=== PATIENT | female | born 1965 | race Caucasian/White ===

== ENCOUNTER 2020-03-22 16:27 | Outpatient (REF) | payer OTHER, SELFPAY ==
--- NOTE | 2020-03-22 16:30 | MM_ITS ---
EXAMINATION: MM SCREENING DIGITAL BREAST TOMOSYNTHESIS, BILATERAL CLINICAL INFORMATION: Screening. Asymptomatic. The lifetime risk of breast cancer based on the Tyrer-Cuzick Model is 14%. COMPARISON: Mammography: 12/07/2017, 09/18/2016, 08/16/2015 TECHNIQUE: Digital breast tomosynthesis is performed in both the craniocaudal and mediolateral oblique views along with computer-aided detection (CAD). Synthesized 2D images are generated from the tomosynthesis. FINDINGS: There are scattered areas of fibroglandular density (ACR BI-RADS breast composition Category b). Breast tissue composition borders on heterogeneously dense. There are scattered bilateral asymmetries which are stable. There is no developing density or interval mass or architectural abnormality or abnormal calcifications. No significant changes from prior exams. MM/MM tomosynthesis screening BI IMPRESSION: No significant changes from prior studies. ASSESSMENT: BI-RADS 2: Benign RECOMMENDATION: Routine annual mammography screening. This patient's information was entered into a reminder system with a target due date for their next mammogram.
== END 2020-03-22 16:28 | disposition home or self-care (01) ==
LOC: HO.MAMMO 16:27
PROVIDERS: PCP Internal Medicine; Visit Provider Internal Medicine
DX: Z12.31 Encounter for screening mammogram for malignant neoplasm of breast (principal)
CPT/HCPCS: 77063; 77067

== ENCOUNTER 2021-08-31 10:26 | Outpatient (REF) | payer OTHER, SELFPAY ==
[2021-08-31 11:10] LABS: MANUAL DIFF FLAG NO
[2021-08-31 11:18] LABS: Basophils Percent Auto 0.5 % (0-2); Eosinophils Absolute Auto 0.2 X10*3/uL (0.0-0.4); Eosinophils Percent Auto 2.4 % (0-4); Hematocrit 39.2 % (37.0-47.0); Hemoglobin 13.3 g/dl (12.0-16.0); Imm Gran Abs Auto 0.01 X10*3/uL (0.00-0.03); Imm Gran Pct Auto 0.1 % (0.0-0.4); Lymphocytes Absolute Auto 3.5 X10*3/uL (1.2-4.9); Lymphocytes Percent Auto 39.4 % (20-40); Mean Corpuscular HGB Conc 33.9 g/dl (31.0-35.0); Mean Corpuscular Hemoglobin 31.9 pg (27.0-33.0); Mean Platelet Volume 8.9 fL (9.4-12.3); Monocytes Absolute Auto 0.8 X10*3/uL (0.1-1.2); Monocytes Percent Auto 9.5 % (2-11); Neutrophils Absolute Auto 4.3 x10*3/uL (2.0-8.3); Neutrophils Percent Auto 48.1 % (45-73); Platelet Count 371 X10*3/uL (160-400); Red Blood Count 4.17 X10*6/uL (4.20-5.50); Red Cell Distribution Width 15.2 % (11.0-16.0); White Blood Count 8.9 X10*3/uL (4.8-10.8)
[2021-08-31 11:38] LABS: Alanine Aminotransferase 12 U/L (0-31); Albumin Level 4.3 g/dL (3.5-5.0); Alkaline Phosphatase 68 U/L (39-117); Anion Gap 12 (12-20); Aspartate Amino Transferase 16 U/L (5-31); Bilirubin Total 0.3 mg/dL (0.0-1.0); Blood Urea Nitrogen 20 mg/dL (9-16); Calcium 8.8 mg/dL (8.4-10.2); Carbon Dioxide 25 mmol/L (22-29); Chloride 108 mmol/L (96-108); Cholesterol 259 mg/dL; Estimated Glomerular Filt Rate > 60; Glucose Fasting 98 mg/dL (60-99); HDL Cholesterol 46 mg/dL; LDL Cholesterol Calculated 189 mg/dl; Potassium 4.5 mmol/L (3.3-5.1); Sodium 140 mmol/L (135-145); Total Protein 6.9 g/dL (6.5-8.0); Triglycerides 123 mg/dL
[2021-08-31 11:46] LABS: TSH reflex Free T4 1.63 uIU/mL (0.32-4.0)
[2021-09-02 10:52] LABS: Vitamin B12 187 pg/mL (200-900)
[2021-09-04 15:12] LABS: Vitamin D 25-OH, D2 <4 ng/mL; Vitamin D 25-OH, D3 24 ng/mL; Vitamin D 25-OH, Total 24 ng/mL (30-100)
== END 2021-08-31 10:27 | disposition home or self-care (01) ==
LOC: HO.HMGCLDS 10:26
PROVIDERS: PCP Internal Medicine; Visit Provider Internal Medicine
DX: Z00.01 Encounter for general adult medical examination with abnormal findings (principal); E78.9 Disorder of lipoprotein metabolism, unspecified; R73.01 Impaired fasting glucose; F17.200 Nicotine dependence, unspecified, uncomplicated
CPT/HCPCS: 36415; 80053; 80061; 82306; 82607; 84443; 85025

== ENCOUNTER 2021-11-16 09:54 | Outpatient (REF) | payer OTHER, SELFPAY ==
--- NOTE | ~2021-11-16 | MM_ITS ---
EXAMINATION: MM SCREENING DIGITAL BREAST TOMOSYNTHESIS, BILATERAL CLINICAL INFORMATION: Screening. Asymptomatic. The lifetime risk of breast cancer based on the Tyrer-Cuzick Model is 11%. COMPARISON: Mammography: 03/22/2020, 12/07/2017, 09/18/2016 TECHNIQUE: Digital breast tomosynthesis is performed in both the craniocaudal and mediolateral oblique views along with computer-aided detection (CAD). Synthesized 2D images are generated from the tomosynthesis. FINDINGS: There are scattered areas of fibroglandular density (ACR BI-RADS breast composition Category b). There are no significant masses, abnormal calcifications, developing density, architectural abnormality. There are scattered benign round and rim and vascular calcifications. No significant changes. The axilla and skin contours are unremarkable. MM/MM tomosynthesis screening BI IMPRESSION: No mammographic evidence of malignancy. ASSESSMENT: BI-RADS 2: Benign RECOMMENDATION: Routine annual mammography screening. This patient's information was entered into a reminder system with a target due date for their next mammogram.
== END 2021-11-16 09:55 | disposition home or self-care (01) ==
LOC: HO.MAMMO 09:54
PROVIDERS: PCP Internal Medicine; Visit Provider Internal Medicine
DX: Z12.31 Encounter for screening mammogram for malignant neoplasm of breast (principal)
CPT/HCPCS: 77063; 77067

== ENCOUNTER 2022-01-03 14:36 | Outpatient (REF) | payer OTHER, SELFPAY ==
--- NOTE | ~2022-01-03 | CT_ITS ---
EXAMINATION: CT CHEST SCREENING CLINICAL INFORMATION: Current smoker. 36 pack year history. COMPARISON: None. TECHNIQUE: Multidetector volumetric CT imaging of the chest is performed without contrast using low dose technique. Additional 2D coronal and sagittal reformatted images and axial 3D maximum intensity projection (MIP) images are generated on the CT workstation. This CT examination was performed using dose optimization techniques as appropriate, variously including the following: *Automated exposure control *Adjustment of mA and/or kV according to patient size (this includes techniques or standardized protocols for targeted exams where dose is matched to indication/reason for exam; i.e. extremities or head) *Use of iterative reconstruction technique DLP: 40 mGy-cm FINDINGS: LUNGS: There is evidence of emphysema. There is biapical pleural parenchymal scarring. No endobronchial or endotracheal lesion. MEDIASTINUM: The mediastinum is normal. CORONARY ARTERY CALCIFICATION: None visualized on this study. PLEURA: There is no pleural effusion. No pleural mass or thickening. AXILLA: No lymphadenopathy. UPPER ABDOMEN: Unremarkable OSSEOUS STRUCTURES: Degenerative changes of the spine. Question mild compression fracture versus Schmorl's node of the T11 vertebral body. CT/CT lung screening IMPRESSION: Emphysema and biapical pleural and parenchymal scarring. ASSESSMENT: Lung-RADS category 2: Benign RECOMMENDATION: Annual low-dose chest CT follow-up recommended.
== END 2022-01-03 14:37 | disposition home or self-care (01) ==
LOC: HO.CT 14:36
PROVIDERS: Visit Provider Physician Assistant Medical
DX: Z12.2 Encounter for screening for malignant neoplasm of respiratory organs (principal); F17.210 Nicotine dependence, cigarettes, uncomplicated
CPT/HCPCS: 71271; G0296

== ENCOUNTER 2022-02-01 09:09 | Outpatient (REF) | payer OTHER, SELFPAY ==
[2022-02-01 11:51] LABS: Alanine Aminotransferase 20 U/L (0-31); Albumin Level 4.6 g/dL (3.5-5.0); Alkaline Phosphatase 55 U/L (39-117); Anion Gap 14 (12-20); Aspartate Amino Transferase 23 U/L (5-31); Bilirubin Total 0.2 mg/dL (0.0-1.0); Blood Urea Nitrogen 15 mg/dL (9-16); Calcium 9.4 mg/dL (8.4-10.2); Carbon Dioxide 26 mmol/L (22-29); Chloride 105 mmol/L (96-108); Cholesterol 158 mg/dL; Estimated Glomerular Filt Rate > 60; Glucose Fasting 102 mg/dL (60-99); HDL Cholesterol 50 mg/dL; LDL Cholesterol Calculated 89 mg/dl; Potassium 4.6 mmol/L (3.3-5.1); Sodium 140 mmol/L (135-145); Total Protein 7.1 g/dL (6.5-8.0); Triglycerides 99 mg/dL
[2022-02-01 12:06] LABS: Vitamin B12 789 pg/mL (200-900)
[2022-02-06 12:23] LABS: Vitamin D 25-OH, D2 <4 ng/mL; Vitamin D 25-OH, D3 36 ng/mL; Vitamin D 25-OH, Total 36 ng/mL (30-100)
== END 2022-02-01 09:10 | disposition home or self-care (01) ==
LOC: HO.HMGCLDS 09:09
PROVIDERS: PCP Internal Medicine; Visit Provider Internal Medicine
DX: R73.01 Impaired fasting glucose (principal); E78.9 Disorder of lipoprotein metabolism, unspecified; E53.8 Deficiency of other specified B group vitamins; E55.9 Vitamin D deficiency, unspecified
CPT/HCPCS: 36415; 80053; 80061; 82306; 82607

== ENCOUNTER 2022-08-04 09:32 | Outpatient (REF) | payer OTHER, SELFPAY ==
[2022-08-04 11:18] LABS: MANUAL DIFF FLAG NO
[2022-08-04 11:37] LABS: Basophils Percent Auto 0.5 % (0-2); Eosinophils Absolute Auto 0.2 X10*3/uL (0.0-0.4); Eosinophils Percent Auto 2.5 % (0-4); Hematocrit 40.5 % (37.0-47.0); Hemoglobin 13.6 g/dl (12.0-16.0); Imm Gran Abs Auto 0.02 X10*3/uL (0.00-0.03); Imm Gran Pct Auto 0.2 % (0.0-0.4); Lymphocytes Absolute Auto 3.2 X10*3/uL (1.2-4.9); Lymphocytes Percent Auto 36.6 % (20-40); Mean Corpuscular HGB Conc 33.6 g/dl (31.0-35.0); Mean Corpuscular Hemoglobin 32.6 pg (27.0-33.0); Mean Corpuscular Volume 97.1 fL (80.0-98.0); Mean Platelet Volume 9.4 fL (9.4-12.3); Monocytes Absolute Auto 0.9 X10*3/uL (0.1-1.2); Monocytes Percent Auto 10.3 % (2-11); Neutrophils Absolute Auto 4.3 x10*3/uL (2.0-8.3); Neutrophils Percent Auto 49.9 % (45-73); Platelet Count 316 X10*3/uL (160-400); Red Blood Count 4.17 X10*6/uL (4.20-5.50); Red Cell Distribution Width 14.6 % (11.0-16.0); White Blood Count 8.7 X10*3/uL (4.8-10.8)
[2022-08-04 11:50] LABS: Estimated Average Glucose 108 mg/dL; Hemoglobin A1c % 5.4 %
[2022-08-04 11:59] LABS: Alanine Aminotransferase 19 U/L (0-31); Albumin Level 4.3 g/dL (3.5-5.0); Alkaline Phosphatase 53 U/L (39-117); Anion Gap 11 (12-20); Aspartate Amino Transferase 24 U/L (5-31); Bilirubin Total 0.4 mg/dL (0.0-1.0); Blood Urea Nitrogen 15 mg/dL (9-16); Calcium 9.4 mg/dL (8.4-10.2); Carbon Dioxide 28 mmol/L (22-29); Chloride 107 mmol/L (96-108); Cholesterol 162 mg/dL; Estimated Glomerular Filt Rate > 60; Glucose Fasting 118 mg/dL (60-99); HDL Cholesterol 48 mg/dL; LDL Cholesterol Calculated 92 mg/dl; Sodium 141 mmol/L (135-145); Total Protein 6.8 g/dL (6.5-8.0); Triglycerides 111 mg/dL
[2022-08-04 12:25] LABS: Vitamin B12 791 pg/mL (200-900)
[2022-08-10 15:44] LABS: Vitamin D 25-OH, D2 <4 ng/mL; Vitamin D 25-OH, D3 35 ng/mL; Vitamin D 25-OH, Total 35 ng/mL (30-100)
== END 2022-08-04 09:33 | disposition home or self-care (01) ==
LOC: HO.HMGCLDS 09:32
PROVIDERS: PCP Internal Medicine; Visit Provider Internal Medicine
DX: E53.8 Deficiency of other specified B group vitamins (principal); E55.9 Vitamin D deficiency, unspecified; E78.9 Disorder of lipoprotein metabolism, unspecified; F17.200 Nicotine dependence, unspecified, uncomplicated; R73.01 Impaired fasting glucose
CPT/HCPCS: 36415; 80053; 80061; 82306; 82607; 83036; 85025

== ENCOUNTER → 2022-11-22 10:30 | Outpatient (BNV) | payer OTHER, SELFPAY | PROVIDERS: PCP Internal Medicine; Visit Provider Radiology Diagnostic Radiology | DX: Z12.31 Encounter for screening mammogram for malignant neoplasm of breast (principal) | CPT/HCPCS: 77063; 77067 ==

== ENCOUNTER 2022-11-22 10:39 | Outpatient (REF) | payer OTHER, SELFPAY ==
--- NOTE | ~2022-11-22 | MM_ITS ---
EXAMINATION: MM SCREENING DIGITAL BREAST TOMOSYNTHESIS, BILATERAL CLINICAL INFORMATION: Screening. Asymptomatic. COMPARISON: Mammography: This study is compared with prior exams dating back to 2018. TECHNIQUE: Digital breast tomosynthesis is performed in both the craniocaudal and mediolateral oblique views along with computer-aided detection (CAD). Synthesized 2D images are generated from the tomosynthesis. FINDINGS: The breasts are heterogeneously dense, which may obscure small masses (ACR BI-RADS breast composition Category c). There are 2-3 areas of fine calcification in the upper outer quadrant of the right breast. The most medial calcifications lie at the level of the posterior nipple line. Additional mammographic imaging with magnification of the upper outer quadrant of the right breast is advised. In the left breast, there no are no significant masses, abnormal calcifications, or other abnormalities. MM/MM tomosynthesis screening BI IMPRESSION: Calcifications in the upper outer quadrant of the right breast warrant additional mammographic imaging with magnification. No mammographic signs of malignancy left breast. ASSESSMENT: BI-RADS BI-RADS 0 - Incomplete: Needs additional Imaging. RECOMMENDATION: 1. Additional views of the left breast. .2. Targeted ultrasound if warranted after review of the additional views. 3. Radiology department staff will contact the patient for additional imaging. Additional Imaging required This examination should not preclude the clinical evaluation of a suspicious palpable abnormality. This patient's information was entered into a reminder system with a target due date for their next mammogram.
== END 2022-11-22 10:40 | disposition home or self-care (01) ==
LOC: HO.MAMMO 10:39
PROVIDERS: PCP Internal Medicine; Visit Provider Internal Medicine
DX: Z12.31 Encounter for screening mammogram for malignant neoplasm of breast (principal)
CPT/HCPCS: 77063; 77067

== ENCOUNTER 2022-11-26 08:18 | Outpatient (REF) | payer OTHER, SELFPAY ==
--- NOTE | ~2022-11-26 | MM_ITS ---
EXAMINATION: MM DIAGNOSTIC DIGITAL MAMMOGRAPHY, RIGHT CLINICAL INFORMATION: Evaluate right breast calcifications seen on screening mammography 11/22/2022. COMPARISON: Mammography: 11/22/2022, 11/16/2021, 03/22/2020, and dating back to 2016. TECHNIQUE: Digital mammography is performed in the following views: Right 3-D spot magnification CC and ML views x2. FINDINGS: The breasts are heterogeneously dense, which may obscure small masses (ACR BI-RADS breast composition Category c). There are at least 2 groups of significant calcifications in the anterior upper outer right breast, which on magnification views demonstrate minimal pleomorphism, punctate forms, and oval poorly defined forms. No linear, branching, or suspicious patterns. No evidence of layering on the ML views. In comparison with 08/16/2015 right mammography, these appear completely unchanged and are almost certainly benign having been stable from 2016. We will follow up in one year with standard diagnostic views and standard tomographic views to be cautious. MM/MM added views RT IMPRESSION: Calcifications which are almost certainly benign seen from 2016 within the anterior right breast upper outer quadrant. To be cautious, 1 year follow-up diagnostic right mammography recommended to include standard magnification views, when the patient is due for bilateral screening. Findings and recommendations were discussed with the patient in detail, who is in agreement with the overall plan. ASSESSMENT: BI-RADS BI-RADS 3 - Probably benign finding(s) - 12 month follow-up suggested RECOMMENDATION: 12 month diagnostic follow up This patient's information was entered into a reminder system with a target due date for their next mammogram.
== END 2022-11-26 08:19 | disposition home or self-care (01) ==
LOC: HO.MAMMO 08:18
PROVIDERS: Visit Provider Internal Medicine
DX: R92.1 Mammographic calcification found on diagnostic imaging of breast (principal)
CPT/HCPCS: 77065

== ENCOUNTER → 2022-11-26 08:30 | Outpatient (BNV) | payer OTHER, SELFPAY | PROVIDERS: Visit Provider Radiology Diagnostic Radiology | DX: R92.331 Mammographic heterogeneous density, right breast (principal); R92.1 Mammographic calcification found on diagnostic imaging of breast | CPT/HCPCS: 77065 ==

== ENCOUNTER 2023-01-24 09:39 | Outpatient (REF) | payer OTHER, SELFPAY ==
[2023-01-24 11:36] LABS: Alanine Aminotransferase 14 U/L (0-31); Albumin Level 4.4 g/dL (3.5-5.0); Alkaline Phosphatase 51 U/L (39-117); Anion Gap 13 (12-20); Aspartate Amino Transferase 21 U/L (5-31); Bilirubin Total 0.3 mg/dL (0.0-1.0); Blood Urea Nitrogen 13 mg/dL (9-16); Calcium 9.5 mg/dL (8.4-10.2); Carbon Dioxide 27 mmol/L (22-29); Chloride 107 mmol/L (96-108); Cholesterol 146 mg/dL (<200); Estimated Glomerular Filt Rate > 60; Glucose Fasting 104 mg/dL (60-99); HDL Cholesterol 47 mg/dL (>40); LDL Cholesterol Calculated 77 mg/dL (<100); Potassium 4.7 mmol/L (3.3-5.1); Sodium 142 mmol/L (135-145); Total Protein 7.3 g/dL (6.5-8.0); Triglycerides 112 mg/dL (<150)
[2023-01-24 11:58] LABS: Vitamin B12 423 pg/mL (200-900)
[2023-01-28 16:03] LABS: Vitamin D 25-OH, D2 <4 ng/mL; Vitamin D 25-OH, D3 23 ng/mL; Vitamin D 25-OH, Total 23 ng/mL (30-100)
== END 2023-01-24 09:40 | disposition home or self-care (01) ==
LOC: HO.HMGCLDS 09:39
PROVIDERS: PCP Internal Medicine; Visit Provider Internal Medicine
DX: E78.9 Disorder of lipoprotein metabolism, unspecified (principal); E53.8 Deficiency of other specified B group vitamins; R73.01 Impaired fasting glucose; E55.9 Vitamin D deficiency, unspecified
CPT/HCPCS: 36415; 80053; 80061; 82306; 82607

== ENCOUNTER 2023-01-27 10:09 | Outpatient (AMB) | payer OTHER, SELFPAY ==
[2023-01-27 10:15] VITALS: BP 132/78; PULSE 90; O2SAT 96; BMI 26.3
--- NOTE | 2023-01-27 10:15 | MHC.PC.OV ---
Vital Signs 01/27/23 10:15 Height 5 ft 2 in Weight 144 lb BMI 26.3 BP 132/78 Blood Pressure Location Lt brachial Position Sitting Pulse 90 Pulse Source Pulse Oximeter Pulse Oximetry (%) 96 Oxygen Delivery Method Room Air Intake Visit Reasons: 6 month follow up Allergies statin Allergy (Unknown, Uncoded 02/07/22 08:15) joint pain Statins Adverse Reaction (Unknown, Uncoded 02/07/22 08:15) Joint pain Medication List - Last Reconciled 01/27/23 by Eric Mcmahan MD buspirone 5 mg PO .q am PRN 90 days multivitamin 1 tab PO DAILY rosuvastatin 20 mg PO DAILY 90 days Tobacco use date assessed: 01/27/23 Dental Screening Dental Screen Date: 01/27/23 Did you have a dental visit in the last 12 months?: Yes Did you have a dental problem in the last 6 months where you did not have access to dental care?: No Was dental information given to patient?: No HPI 6 month follow up HPI Details Patient is 57-year-old female came in today for her six-month follow-up appointment Patient has going through difficult time for domestic reasons, having difficulty with She is exploring the possibility of couple counseling. She is also going through dental treatment and is feeling very anxious because some the teeth need to be removed She is asking if she can go up on buspirone that she is taking for anxiety currently patient is on 5 mg I am increasing the dose to 10 mg up to 3 times a day. Lipid disorder: she is on rosuvastatin 20 mg Pre diabetes: Continue weight management and diet-controlled Vitamin-D level is normal now. She may continue the supplement Continue to smoke , patient has tried lozenges but she did not like the taste. I have sent Nicoderm patches again. She did had a screening CT scan done which was within normal limit. Labs done recently reviewed Patient is coming every 6 months for follow-up, but I would like to see her back in 3 months because of anxiety [facility] Medical History History of basal cell cancer Vitamin D insufficiency (~2021) History of colon polyps (~2018) Nicotine dependence, cigarettes, uncomplicated B12 deficiency (~2021) Lipid disorder Surgical History History of hysterectomy History of cervical biopsy History of colonoscopy Family History Brother Substance use disorder Social History Housing: House Patient Tobacco Use Status: Current everyday Tobacco user Tobacco use type: Cigarette Cigarettes Per Day: 15 Years Smoked: (onset 18yo, 1ppd x 38yrs, now 3/4ppd - 35pyh) e-Cigarette/Vaping Use: Never Used service: No Current occupational status: employed Cognitive needs: No Hearing needs: No Vision needs: Yes Questionnaire PHQ-9 Over the last 2 weeks, how often have you been bothered by any of the following problems? 1. Little interest or pleasure in doing things: not at all 2. Feeling down, depressed, or hopeless: not at all 3. Trouble falling or staying asleep, or sleeping too much: several days 4. Feeling tired or having little energy: several days 5. Poor appetite or overeating: not at all 6. Feeling bad about yourself - or that you are a failure or have let yourself or your family down: not at all 7. Trouble concentrating on things, such as reading the newspaper or watching television: not at all 8. Moving or speaking so slowly that other people could have noticed. Or the opposite - being so fidgety or restless that you have been moving around a lot more than usual: not at all 9. Thoughts that you would be better off or of hurting yourself in some way: not at all Total score: 2 Depression Screening Interpretation: Negative Depression Screening Done: Yes 26189 - PHQ-9 Billing: Yes Source: Developed by Drs. Mao Florentino, Cris Simon, Ned Jaramillo and colleagues, with an educational hayde from [employer]. Thrive Questionnaire Date Thrive assessed: 01/27/23 I am a: Patient What is your living situation today?: I have a steady place to live Within the past 12 months, did the food you bought not last and you didn't have the money to get more?: Never true Within the past 12 months, did you worry whether your food would run out before you got money to buy more?: Never true Do you have trouble paying for medicines?: No Do you have trouble getting transportation to medical appointments?: No Do you have trouble paying your heating and electricity bill?: No Do you have trouble taking care of your child, family member or friend?: No Do you have trouble with day-to-day activities such as bathing, preparing meals, shopping, managing finances, etc.?: No Are you currently unemployed and looking for a job?: No Are you interested in more education?: No Please select the resources that you would like help with: None Currently or been in a relationship where the following occur: no concerns reported AUDIT C Alcohol Use Questionnaire (AUDIT-C) 1. How often do you have a drink containing alcohol?: 2-3 times a week 2. How many drinks containing alcohol do you have on a typical day when you are drinking?: 1 or 2 3. How often do you have six or more drinks on one occasion?: Never Total Score: 3 Score Reviewed/Action Taken: Yes DEEPALI-7 AMB Questionnaire DEEPALI-7 Date DEEPALI - 7 assessed: 01/27/23 Feeling nervous, anxious, or on edge: 1 = Several days Not being able to stop or control worryin = Several days Worrying too much about different things: 1 = Several days Trouble relaxin = Several days Being so restless that it is hard to sit still: 1 = Several days Becoming easily annoyed or irritable: 1 = Several days Feeling afraid as if something awful might happen: 1 = Several days Total DEEPALI-7 score (0-4 normal; 5-9 mild; 10-14 moderate; 15-21 severe): 7 Source: Developed by Drs. Mao Florentino, Cris Simon, Ned Jaramillo and colleagues, with an educational hayde from [employer]. DEEPALI-7 Assessment Billing DEEPALI-7 Assessment Tool: DEEPALI-7 Assessment 72713 Review of Systems Const Denies chills and Denies fever(s) ENT Denies epistaxis and Denies nasal discharge Card Denies chest pain Resp Denies chest congestion, Denies cough and Denies hemoptysis GI Denies diarrhea and Denies nausea Skin/Breast Denies rash Neuro Reports no additional complaints Psych Reports no additional complaints Endo Reports no additional complaints Physical exam (Primary Care) Vital Signs: Last Vital Signs Pulse 90 01/27/23 10:15 BP 132/78 01/27/23 10:15 Pulse Ox 96 01/27/23 10:15 Oxygen Delivery Method Room Air 01/27/23 10:15 BMI result Body Mass Index 26.3 Tobacco/Smoking Status: Tobacco use Status Tobacco use date assessed 01/27/23 01/27/23 10:18 Patient Tobacco Use Status Current everyday Tobacco 01/27/23 10:18 Tobacco use type Cigarette 01/27/23 10:18 e-Cigarette/Vaping Use Never Used 01/27/23 10:18 Are you ready to quit: Yes Tobacco cessation counseling provided: Yes Items discussed: Nicotine replacement CPT code: 76335 - 4-10 Minutes PHQ-9: PHQ-9 Score PHQ-9: Total score 2 01/27/23 10:34 Depression Screening Interpretation: Negative Thrive Assessment: Date of Thrive Assessment Date Thrive assessed 01/27/23 01/27/23 10:30 Currently or been in a relationship where the following occur: no concerns reported Const General: cooperative, comfortable and no acute distress Orientation/consciousness: patient oriented x3 HENMT Head: Yes normocephalic Eyes General: appearance normal, both eyes and all related structures Neck Neck: Yes supple Resp Effort & Inspection: normal respiratory effort, no cough and no stridor Cardio Rhythm: regular rhythm Heart sounds: S1 normal heart sound present and S2 normal heart sound present Skin General skin exam: turgor normal Neuro General: patient oriented x3, tone normal and moves all extremities Extrem Right lower extremity: no edema Left lower extremity: no edema Office Procedures Flu Questionnaire Does the patient have a severe egg allergy?: No Does the patient have severe life threatening allergies?: No Does the patient have a fever or illness today?: No Has the patient ever had Guillain-Billings Syndrome?: No Has the patient ever had any past reaction to a flu shot?: No Immunizations flu vacc [id number] 6mos up(PF) 60 mcg(15 mcgx4)/0.5 mL IM syringe Performing Provider: Eric Mcmahan MD [place] [facility] [place] [facility] Administered by: Rhona Garrido CMA on 01/27/23 10:39 Dose Route Admin Location Dispensed Lot Number Expiration Date NDC [employer] 0.5 mL IM Left Deltoid 0.5 mL [id number] 08/23/23 87399-267-03 [employer] VIS Given Date VIS Provided VIS Publication Date 01/27/23 Single Vaccine 20 Eligibility Eligibility Date Funding Source Not [facility] Eligible 01/27/23 Private Assessment and Plan Assessment & Plan (1) Lipid disorder: Code(s): E78.9 - Disorder of lipoprotein metabolism, unspecified (2) B12 deficiency: Onset Date: ~2021 Code(s): E53.8 - Deficiency of other specified B group vitamins (3) Vitamin D insufficiency: Onset Date: ~2021 Code(s): E55.9 - Vitamin D deficiency, unspecified (4) Tobacco dependence: Code(s): F17.200 - Nicotine dependence, unspecified, uncomplicated (5) Impaired fasting blood sugar: Code(s): R73.01 - Impaired fasting glucose (6) Gum disease: Code(s): K06.9 - Disorder of gingiva and edentulous alveolar ridge, unspecified (7) Anxiety, generalized: Code(s): F41.1 - Generalized anxiety disorder Plan Patient is 57-year-old female came in today for her six-month follow-up appointment Patient has going through difficult time for domestic reasons, having difficulty with She is exploring the possibility of couple counseling. She is also going through dental treatment and is feeling very anxious because some the teeth need to be removed She is asking if she can go up on buspirone that she is taking for anxiety currently patient is on 5 mg I am increasing the dose to 10 mg up to 3 times a day. Lipid disorder: she is on rosuvastatin 20 mg Pre diabetes: Continue weight management and diet-controlled Vitamin-D level is normal now. She may continue the supplement Continue to smoke , patient has tried lozenges but she did not like the taste. I have sent Nicoderm patches again. She did had a screening CT scan done which was within normal limit. Labs done recently reviewed Patient is coming every 6 months for follow-up, but I would like to see her back in 3 months because of anxiety Orders: Orders Influenza [id number] Immunization Today Z23 - Encounter for immunization Medications: New nicotine (Nicoderm CQ) 1 patch transdermal DAILY 28 ea 1RF Changed From buspirone 5 mg PO .q am 90 days PRN 90 tabs 1RF anxiety To buspirone 10 mg PO TID PRN 180 tabs 1RF anxiety 90 days Coding Level of Care Code Est Pt Level 4 (82087) Diagnoses Lipid disorder E78.9 B12 deficiency E53.8 Vitamin D insufficiency E55.9 Tobacco dependence F17.200 Impaired fasting blood sugar R73.01 Gum disease K06.9 Anxiety, generalized F41.1 Additional Codes DEEPALI-7 Assessment Billing - DEEPALI-7 Assessment Tool: DEEPALI-7 Assessment 22991 ([id number]) Vital Signs *Quality* - CPT code: 30639 - 4-10 Minutes ([id number])
== END 2023-01-27 12:27 | disposition home or self-care (01) ==
PROVIDERS: PCP Internal Medicine; Visit Provider Internal Medicine
DX: E78.9 Disorder of lipoprotein metabolism, unspecified (principal); E53.8 Deficiency of other specified B group vitamins; E55.9 Vitamin D deficiency, unspecified; Z23 Encounter for immunization; F17.200 Nicotine dependence, unspecified, uncomplicated; R73.01 Impaired fasting glucose; K06.9 Disorder of gingiva and edentulous alveolar ridge, unspecified; F41.1 Generalized anxiety disorder
CPT/HCPCS: 90471; 90686; 99214

== ENCOUNTER 2023-07-31 06:03 | Emergency (ER) | payer OTHER, SELFPAY ==
--- NOTE | ~2023-07-31 | XR_ITS ---
EXAMINATION: XR WRIST LEFT XR FOREARM LEFT CLINICAL INFORMATION: Pain COMPARISON: None TECHNIQUE: Left forearm, 2 views Left wrist, 3 views FINDINGS: Left forearm: The radius and ulna are intact. Alignment is normal at proximal and distal radioulnar joints. No elbow joint effusion. No focal soft tissue swelling or radiopaque foreign body. Left wrist: Bones have normal alignment at the wrist. The joint spaces of the wrist are maintained. There is osteophyte formation at the first carpometacarpal joint. A punctate focus of calcification at the dorsal aspect of the wrist could represent calcium hydroxyapatite deposition or possibly the sequela of remote minor trauma. XR/XR wrist LT 2V IMPRESSION: * No evidence of acute osseous injury in the left forearm or wrist. No carpal bone fracture or malalignment. * [id number] osteoarthritis of the first carpometacarpal joint.
--- NOTE | ~2023-07-31 | XR_ITS ---
EXAMINATION: XR WRIST LEFT XR FOREARM LEFT CLINICAL INFORMATION: Pain COMPARISON: None TECHNIQUE: Left forearm, 2 views Left wrist, 3 views FINDINGS: Left forearm: The radius and ulna are intact. Alignment is normal at proximal and distal radioulnar joints. No elbow joint effusion. No focal soft tissue swelling or radiopaque foreign body. Left wrist: Bones have normal alignment at the wrist. The joint spaces of the wrist are maintained. There is osteophyte formation at the first carpometacarpal joint. A punctate focus of calcification at the dorsal aspect of the wrist could represent calcium hydroxyapatite deposition or possibly the sequela of remote minor trauma. XR/XR forearm LT 2V IMPRESSION: * No evidence of acute osseous injury in the left forearm or wrist. No carpal bone fracture or malalignment. * [id number] osteoarthritis of the first carpometacarpal joint.
[2023-07-31 06:08] VITALS: BP 128/80; PULSE 92; RESP 18; TEMP 36.4; O2SAT 98; BMI 24.9
--- NOTE | 2023-07-31 06:52 | ECG_ITS ---
Test Reason : L UPPER EXTREMITY PAIN Blood Pressure : / mmHG Vent. Rate : 090 BPM Atrial Rate : 090 BPM P-R Int : 208 ms QRS Dur : 078 ms QT Int : 386 ms P-R-T Axes : 065 063 072 degrees QTc Int : 472 ms Normal sinus rhythm Possible Left atrial enlargement Borderline ECG No previous ECGs available Referred By: Irene Oneill Electronically Signed By:BHARAT COPELAND MD
--- NOTE | 2023-07-31 06:53 | ED_ITS ---
HPI - Extremity Problem General Chief complaint: Extremity Injury, Upper Stated complaint: Left sided pain Time Seen by Provider: 07/31/23 06:52 Source: patient Mode of arrival: ambulatory Limitations: no limitations History of Present Illness ED Provider: Arabella WERNER HPI Narrative: 57-year-old female history of anxiety, tobacco dependence, hyperlipidemia, impaired fasting blood glucose presenting to the emergency department with atraumatic left-sided wrist pain with radiation into fingers and at time affecting her entire left upper extremity, patient reports this pain woke her from her sleep she reports 10/10 pain. Worse with movement better at rest. Reports intermittent tingling into all of left fingers. This has never happened to her before. Not on control no recent travel, no history of heart disease. Patient denies any recent trauma or falls. No previous issues with left wrist. Denies chest pain, shortness of breath, fevers, chills, nausea, vomiting, abdominal pain, jaw pain, shoulder pain, headache, vision changes, dizziness and weakness. Related Data Home Medications ?Medication ?Instructions ?Recorded ?Confirmed multivitamin 1 tab PO DAILY 08/08/22 01/27/23 Previous Rx's ?Medication ?Instructions ?Recorded buspirone 10 mg tablet 10 mg PO TID PRN anxiety 90 days 01/27/23 #180 tabs nicotine 21 mg/24 hr daily 1 patch transdermal DAILY #28 ea 01/27/23 transdermal patch (Nicoderm CQ) lorazepam 0.5 mg tablet 0.5 mg PO DAILY PRN anxiety/dental 02/02/23 procedure 3 days #3 tabs rosuvastatin 20 mg tablet 20 mg PO DAILY 90 days #90 tabs 02/06/23 acetaminophen 325 mg capsule 650 mg (2 x 325 mg) PO Q4H PRN 07/31/23 (Tylenol) pain #30 caps ketorolac 10 mg tablet 10 mg PO TID PRN pain 5 days #15 07/31/23 tabs Allergies Allergy/AdvReac Type Severity Reaction Status Date / Time Statins AdvReac Unknown Joint pain Uncoded 07/31/23 06:12 Review of Systems 2 Review of Systems: Yes all other systems are reviewed and are negative PMFSH Past Medical History Attestation statement: The following information was validated with the patient. Source: old records reviewed and nursing notes reviewed Medical History History of basal cell cancer Vitamin D insufficiency (~2021) History of colon polyps (~2018) Nicotine dependence, cigarettes, uncomplicated B12 deficiency (~2021) Lipid disorder Surgical History History of hysterectomy History of cervical biopsy History of colonoscopy Family History Family History Brother Substance use disorder Social History Social History Housing: House Patient Tobacco Use Status: Current everyday Tobacco user Tobacco use type: Cigarette Cigarettes Per Day: 15 Years Smoked: (onset 18yo, 1ppd x 38yrs, now 3/4ppd - 35pyh) e-Cigarette/Vaping Use: Never Used Advance Directives: No Advance Directives Information Provided: No Do you have a plan to hurt others: No Plan service: No Current occupational status: employed Cognitive needs: No Hearing needs: No Vision needs: Yes Physical Exam 2 Vital Signs: Vital Signs: Last Vital Signs Temp 97.6 F 07/31/23 06:08 Pulse 92 07/31/23 06:08 Resp 18 07/31/23 06:08 BP 128/80 07/31/23 06:08 Pulse Ox 98 07/31/23 06:08 O2 Del Method Room Air 07/31/23 06:08 BMI result Body Mass Index 24.9 vss Appearance: Alert.? Oriented X3.? No acute distress.? Head: Normocephalic, atraumatic, no step-offs or deformities Eyes: Pupils equal, round and reactive to light. Neck: Normal inspection.? Neck supple.? CVS: Normal heart rate and rhythm.? Pulses normal.? Respiratory: No respiratory distress.? Breath sounds normal.? Abdomen: Soft and nontender.? Skin: Skin warm and dry.? Normal skin color.? Normal skin turgor.? Extremities: No lower extremity edema.? No calf ttp. 5/5 strength to bilateral upper and lower extremities ( left wrist difficult to ascess strength due to pain). 2+ radial pulses equal and b/l. No wrist drop b/l. Normal senation distally. No edema to b/l UE. Painful ROM to L wrist Neuro: Oriented X 3.? No motor deficit.? No sensory deficit. CN 2-12 intact Course Reevaluation(s) Reevaluation #1: X-ray of left wrist no evidence of acute osseous injury in the left forearm or wrist. No carpal bone fractures or malalignment. Mild to moderate osteoarthritis of the 1st carpometacarpal joint. Orthopedics Dr. Dixon came down and tried to do a joint aspiration, very little fluid. Unlikely that this is septic joint per Orthopedics. Likely inflammatory process. Recommend NSAIDs. Follow-up if needed. No indication for antibiotics he states. Patient played in a cock-up splint. Educated patient on diagnosis and treatment plan, answered all question, patient verbalizes understanding. At this time patient will be discharged home, advised to return with new or worsening symptoms. Educated on worrisome signs and symptoms and when to return. At this time I feel comfortable discharge home. Time: 11:28 Medications Administered Discontinued Medications Generic Name Dose Route Start Last Admin Trade Name Bibiana PRN Reason Stop Dose Admin Acetaminophen 650 mg 07/31/23 06:58 07/31/23 07:10 Acetaminophen 325 Mg Tablet PO 07/31/23 06:59 650 mg ONCE ONE Administration Ketorolac Tromethamine 30 mg 07/31/23 06:58 07/31/23 07:10 Ketorolac Tromethamine 30 Mg/Ml Vial IM 07/31/23 06:59 30 mg ONCE ONE Administration Morphine Sulfate 4 mg 07/31/23 08:35 07/31/23 08:52 Morphine Sulfate 4 Mg/Ml Cartridge IVPUSH 07/31/23 08:36 4 mg ONCE ONE Administration Protocol Medical Decision Making Medical Decision Making [facility] Narrative: 1119 57 yo f presents w/ L wrist pain PE- No lower extremity edema.? No calf ttp. 5/5 strength to bilateral upper and lower extremities ( left wrist difficult to ascess strength due to pain). 2+ radial pulses equal and b/l. No wrist drop b/l. Normal senation distally. No edema to b/l UE. Painful ROM to L wrist History and physical exam concerning for gout versus pseudogout versus inflammatory arthritis. Unlikely septic joint acute tenosynovitis. Tendinitis also remains on the differential and osteoarthritis. Rheumatologic causes should also be considered with an outpatient follow-up. Nothing emergent Plan labs, imaging, inflammatory markers. Will reach out to ortho due to severe pain. Differential Diagnosis Differential Diagnoses: The differential diagnosis associated with the presentation includes History and physical exam concerning for gout versus pseudogout versus inflammatory arthritis. Unlikely septic joint acute tenosynovitis. Tendinitis also remains on the differential and osteoarthritis. Rheumatologic causes should also be considered with an outpatient follow-up. Nothing emergent Admission/Observation Consideration of admission/observation: Escalation of care including admission/observation considered Possible Consult Healthcare Provider Management of the patient was discussed with: Cut Lace Machine Operator (Ortho ) Lab Data MDM Lab Attestation statement: I reviewed the patient's lab results. 07/31/23 07:11 07/31/23 07:11 Labs: Lab Results 07/31/23 07/31/23 Range/Units 07:11 08:02 WBC 16.4 H (4.8-10.8) X10*3/uL RBC 4.18 L (4.20-5.50) X10*6/uL Hgb 13.7 (12.0-16.0) g/dl Hct 39.6 (37.0-47.0) % MCV 94.7 (80.0-98.0) fL MCH 32.8 (27.0-33.0) pg MCHC 34.6 (31.0-35.0) g/dl RDW 15.5 (11.0-16.0) % Plt Count 305 (160-400) X10*3/uL MPV 8.6 L (9.4-12.3) fL Immature Gran % (Auto) 0.4 (0.0-0.4) % Neut % (Auto) 82.5 H (45-73) % Lymph % (Auto) 11.0 L (20-40) % [place] % (Auto) 5.4 (2-11) % Eos % (Auto) 0.3 (0-4) % Baso % (Auto) 0.4 (0-2) % Lymph # (Auto) 1.8 (1.2-4.9) X10*3/uL [place] # (Auto) 0.9 (0.1-1.2) X10*3/uL Eos # (Auto) 0.1 (0.0-0.4) X10*3/uL Baso # (Auto) 0.1 (0.0-0.2) X10*3/uL Abs Immat Gran (auto) 0.06 H (0.00-0.03) X10*3/uL Absolute Neuts (auto) 13.6 H (2.0-8.3) x10*3/uL Absolute Nucleated RBC 0.000 (0.0-0.012) X10*3/uL Nucleated RBC % (auto) 0.0 (0.0-0.2) /100WBC ESR 14 (0-20) MM/HR Sodium 142 (135-145) mmol/L Potassium 3.8 (3.3-5.1) mmol/L Chloride 109 H (96-108) mmol/L Carbon Dioxide 24 (22-29) mmol/L Anion Gap 13 (12-20) BUN 14 (9-16) mg/dL Creatinine 0.73 (0.5-1.4) mg/dL Estim Creat Clear Calc 74.5 Estimated GFR > 60 Random Glucose 137 H (60-115) mg/dL Lactic Acid 1.0 (0.5-2.0) mmol/L Uric Acid 3.4 (2.4-5.7) mg/dL Calcium 9.5 (8.4-10.2) mg/dL Total Bilirubin 0.2 (0.0-1.0) mg/dL AST 17 (5-31) U/L ALT 8 (0-31) U/L Alkaline Phosphatase 59 (39-117) U/L Troponin I High Sens < 2.7 (<3.5-17.0) ng/L C-Reactive Protein < 0.10 (< or = 0.50) mg/dL Total Protein 7.1 (6.5-8.0) g/dL Albumin 4.3 (3.5-5.0) g/dL Independent Interpretation I performed an independent interpretation of an: Plain X-Ray (XR/XR wrist LT 2V IMPRESSION: * No evidence of acute osseous injury in the left forearm or wrist. No carpal bone fracture or malalignment. * [id number] osteoarthritis of the first carpometacarpal joint. ) Radiology Impression Discussion of test interpretation with radiology: I have reviewed the radiologist's reading. Independent Historian Clinical information obtained from an independent historian. History obtained from or confirmed by: Other (daughter) External Record Review External record reviewed: Office record, Outpatient record, Prior outpatient labs and Prior outpatient radiology Prescription Management I considered prescription management with: Pain Medication (Toradol ) Chronic Conditions Patient?s care impacted by: Other (Anxiety tobacco use disorder. Lipid disorder) Critical Care Time Critical Care Time Critical Care Time: Yes Total Critical Care Time: 35 Attestation: I attest to this time spent taking care of the patient, obtaining history, physical, reviewing labs, imaging, speaking to my attending, specialist or hospitalist. Discharge Plan Discharge Clinical Impression: Acute pain of left wrist, Inflammatory arthritis Patient Disposition: Home, Self-Care Instructions: Osteoarthritis (DC), Arm Pain (ED) Additional Instructions: Take your medications as prescribed. If you were prescribed antibiotics today, it is important that you take your medication to their entirety, do not skip any doses, do not finish them early. Follow-up with your primary care provider this week. Return to the emergency department with new or worsening symptoms. Such as fevers, chills, chest pain, shortness of breath, nausea, vomiting, dizziness, headache, vision changes, lethargy In case of emergency call 911 Toradol has been sent to your pharmacy, you tolerated this well in the department. Please take this as prescribed do not take this with ibuprofen, or other NSAIDs, do not mix this with alcohol. Side effects of this medication including increased risk for bleeding and possible kidney injury. Follow-up with the orthopedic team if needed. In return with any new or worsening symptoms such as signs of infection redness, swelling or worsening pain. XR/XR wrist LT 2V IMPRESSION: * No evidence of acute osseous injury in the left forearm or wrist. No carpal bone fracture or malalignment. * [id number] osteoarthritis of the first carpometacarpal joint. Prescriptions: New acetaminophen [Tylenol] 325 mg capsule 650 mg PO Q4H PRN (Reason: pain) Qty: 30 0RF ketorolac 10 mg tablet 10 mg PO TID PRN (Reason: pain) 5 Days Qty: 15 0RF No Action lorazepam 0.5 mg tablet 0.5 mg PO DAILY PRN (Reason: anxiety/dental procedure ) 3 Days Qty: 3 0RF Rx Instructions: take one hour before the procedure rosuvastatin 20 mg tablet 20 mg PO DAILY 90 Days Qty: 90 1RF multivitamin Tablet 1 tab PO DAILY buspirone 10 mg tablet 10 mg PO TID PRN (Reason: anxiety) 90 Days Qty: 180 1RF nicotine [Nicoderm CQ] 21 mg/24 hr patch 24 hour 1 patch transdermal DAILY Qty: 28 1RF Referrals: [facility] [place] [facility] [Provider Group] - 2 days Eric Mcmahan MD [Primary Care Provider] - 2 days Stand Alone Forms: Work/School Release Print Language: Irish
[2023-07-31] MEDS: Acetaminophen 325 MG TABLET 650 MG PO (07:10)
[2023-07-31] MEDS: Ketorolac Tromethamine 30 MG/ML VIAL IM (07:10)
--- NOTE | 2023-07-31 07:13 | PC.NURSE ---
patient a&ox3, vss, pt medicated per order, labs drawn, family at bedside, call toney within reach, will continue to monitor
[2023-07-31 07:15] LABS: MANUAL DIFF FLAG NO
[2023-07-31 07:16] LABS: Basophils Absolute Auto 0.1 X10*3/uL (0.0-0.2); Basophils Percent Auto 0.4 % (0-2); Eosinophils Absolute Auto 0.1 X10*3/uL (0.0-0.4); Eosinophils Percent Auto 0.3 % (0-4); Hematocrit 39.6 % (37.0-47.0); Hemoglobin 13.7 g/dl (12.0-16.0); Imm Gran Abs Auto 0.06 X10*3/uL (0.00-0.03); Imm Gran Pct Auto 0.4 % (0.0-0.4); Lymphocytes Absolute Auto 1.8 X10*3/uL (1.2-4.9); Mean Corpuscular HGB Conc 34.6 g/dl (31.0-35.0); Mean Corpuscular Hemoglobin 32.8 pg (27.0-33.0); Mean Corpuscular Volume 94.7 fL (80.0-98.0); Mean Platelet Volume 8.6 fL (9.4-12.3); Monocytes Absolute Auto 0.9 X10*3/uL (0.1-1.2); Monocytes Percent Auto 5.4 % (2-11); Neutrophils Absolute Auto 13.6 x10*3/uL (2.0-8.3); Neutrophils Percent Auto 82.5 % (45-73); Platelet Count 305 X10*3/uL (160-400); Red Blood Count 4.18 X10*6/uL (4.20-5.50); Red Cell Distribution Width 15.5 % (11.0-16.0); White Blood Count 16.4 X10*3/uL (4.8-10.8)
[2023-07-31 07:32] LABS: Alanine Aminotransferase 8 U/L (0-31); Albumin Level 4.3 g/dL (3.5-5.0); Alkaline Phosphatase 59 U/L (39-117); Anion Gap 13 (12-20); Aspartate Amino Transferase 17 U/L (5-31); Bilirubin Total 0.2 mg/dL (0.0-1.0); Blood Urea Nitrogen 14 mg/dL (9-16); Calcium 9.5 mg/dL (8.4-10.2); Carbon Dioxide 24 mmol/L (22-29); Chloride 109 mmol/L (96-108); Creatinine Clr Calc Pharmacy 74.5; Estimated Glomerular Filt Rate > 60; Glucose Random 137 mg/dL (60-115); Potassium 3.8 mmol/L (3.3-5.1); Sodium 142 mmol/L (135-145); Total Protein 7.1 g/dL (6.5-8.0); Uric Acid 3.4 mg/dL (2.4-5.7)
[2023-07-31 07:39] LABS: Troponin-I High Sensitivity < 2.7 ng/L (<3.5-17.0)
[2023-07-31 08:41] LABS: C Reactive Protein < 0.10 mg/dL (< or = 0.50)
[2023-07-31] MEDS: Morphine Sulfate 4 MG/ML CARTRIDGE IVPUSH (08:52)
--- NOTE | 2023-07-31 08:56 | PC.NURSE ---
pt medicated per order for 10/02 pain
[2023-07-31 09:35] LABS: Erythrocyte Sedimentation Rate 14 MM/HR (0-20)
[2023-07-31 11:35] VITALS: BP 120/80; PULSE 92; RESP 16; TEMP 36.4; O2SAT 98
[2023-07-31] MEDS: Lidocaine HCl 1 % 20 ML VIAL SUBCUT (11:40)
== END 2023-07-31 11:36 | disposition home or self-care (01) ==
PROVIDERS: Physician Assistant; Emergency Provider Emergency Medicine Emergency Medical Services; PCP Internal Medicine
DX: M25.532 Pain in left wrist (principal); M13.832 Other specified arthritis, left wrist; R94.31 Abnormal electrocardiogram [ECG] [EKG]; M79.602 Pain in left arm; F17.200 Nicotine dependence, unspecified, uncomplicated; Z79.899 Other long term (current) drug therapy
CPT/HCPCS: 36415; 73090; 73100; 80053; 83605; 84484; 84550; 85025; 85652; 86140; 87040; 93005; 96372; 96374; 99284; J1885; J2270

== ENCOUNTER → 2023-07-31 06:52 | Outpatient (BNV) | payer OTHER, SELFPAY | PROVIDERS: Emergency Provider Emergency Medicine Emergency Medical Services; PCP Internal Medicine; Visit Provider Internal Medicine Cardiovascular Disease | DX: M79.602 Pain in left arm (principal) | CPT/HCPCS: 93010 ==

== ENCOUNTER 2023-08-12 15:28 | Outpatient (AMB) | payer OTHER, SELFPAY ==
--- NOTE | 2023-08-12 15:35 | MHC.PC.OV ---
Vital Signs 08/12/23 15:37 Height 5 ft 3 in Weight 139 lb BMI 24.6 BP 120/80 Blood Pressure Location Lt brachial Position Sitting Pulse 74 Pulse Source Pulse Oximeter Pulse Oximetry (%) 98 Oxygen Delivery Method Room Air Intake Visit Reasons: Annual PE Allergies Statins Adverse Reaction (Unknown, Uncoded 08/12/23 15:37) Joint pain Medication List - Last Reconciled 08/12/23 by Eric Mcmahan MD acetaminophen (Tylenol) 650 mg (2 x 325 mg) PO Q4H PRN multivitamin 1 tab PO DAILY rosuvastatin 20 mg PO DAILY 90 days Tobacco use date assessed: 08/12/23 Dental Screening Dental Screen Date: 08/12/23 Did you have a dental visit in the last 12 months?: Yes Did you have a dental problem in the last 6 months where you did not have access to dental care?: No Was dental information given to patient?: Patient has dentist HPI Annual PE HPI Details 57-year-old female came in today for physical examination and for acute problem Patient have history of anxiety, tobacco dependence, lipid disorder, impaired fasting sugar. Patient was evaluated in emergency room 7th of this month for acute left wrist pain X-ray of wrist reveal no evidence of osseous injury, no carpal bone fracture or malalignment. [id number] osteoarthritis of 1st carpometacarpal joint was noticed. Dr. Dixon orthopedic evaluated the patient tried to do a joint aspiration with little fluid retrieved. Orthopedic did not think that this is a septic arthritis. And recommended NSAIDs. She was placed in splint and was discharged She was given a script of Tylenol and ketorolac 10 mg tablets t.i.d. p.r.n. 15 tablets Mammogram was November of last year OBGYN visit , patient was going to [facility] [place] every 2 years, however she has a history of hysterectomy and has no cervix either due to benign reasons. Colonoscopy was 2 years ago at [facility] Patient has stopped taking anxiety medication Her wrist pain is improving gradually Only medication she is taking now is rosuvastatin, patient will return in 6 months for follow-up appointment Labs to be done before visit fasting She also goes to [facility] once a year for skin cancer screening [facility] Medical History History of basal cell cancer Vitamin D insufficiency (~2021) History of colon polyps (~2018) Nicotine dependence, cigarettes, uncomplicated B12 deficiency (~2021) Lipid disorder Surgical History History of hysterectomy History of cervical biopsy History of colonoscopy Family History Brother Substance use disorder Social History Housing: House Patient Tobacco Use Status: Current everyday Tobacco user Tobacco use type: Cigarette Cigarettes Per Day: 15 Years Smoked: (onset 18yo, 1ppd x 38yrs, now 3/4ppd - 35pyh) e-Cigarette/Vaping Use: Never Used service: No Current occupational status: employed Cognitive needs: No Hearing needs: No Vision needs: Yes Questionnaire PHQ-9 Over the last 2 weeks, how often have you been bothered by any of the following problems? 1. Little interest or pleasure in doing things: not at all 2. Feeling down, depressed, or hopeless: not at all 3. Trouble falling or staying asleep, or sleeping too much: not at all 4. Feeling tired or having little energy: several days 5. Poor appetite or overeating: not at all 6. Feeling bad about yourself - or that you are a failure or have let yourself or your family down: not at all 7. Trouble concentrating on things, such as reading the newspaper or watching television: not at all 8. Moving or speaking so slowly that other people could have noticed. Or the opposite - being so fidgety or restless that you have been moving around a lot more than usual: not at all 9. Thoughts that you would be better off or of hurting yourself in some way: not at all Total score: 1 Depression Screening Interpretation: Negative Depression Screening Done: Yes 84440 - PHQ-9 Billing: Yes Source: Developed by Drs. Mao Florentino, Cris Simon, Ned Jaramillo and colleagues, with an educational hayde from [employer]. Thrive Questionnaire Date Thrive assessed: 08/12/23 I am a: Patient What is your living situation today?: I have a steady place to live Within the past 12 months, did the food you bought not last and you didn't have the money to get more?: Never true Within the past 12 months, did you worry whether your food would run out before you got money to buy more?: Never true Do you have trouble paying for medicines?: No Do you have trouble getting transportation to medical appointments?: No Do you have trouble paying your heating and electricity bill?: No Do you have trouble taking care of your child, family member or friend?: No Do you have trouble with day-to-day activities such as bathing, preparing meals, shopping, managing finances, etc.?: No Are you currently unemployed and looking for a job?: No Are you interested in more education?: No Please select the resources that you would like help with: None Currently or been in a relationship where the following occur: no concerns reported THRIVE Score: 0 AUDIT C Alcohol Use Questionnaire (AUDIT-C) 1. How often do you have a drink containing alcohol?: 2-4 times a month 2. How many drinks containing alcohol do you have on a typical day when you are drinking?: 1 or 2 3. How often do you have six or more drinks on one occasion?: Never Total Score: 2 Score Reviewed/Action Taken: No DEEPALI-7 AMB Questionnaire DEEPALI-7 Date DEEPALI - 7 assessed: 08/12/23 Feeling nervous, anxious, or on edge: 1 = Several days Not being able to stop or control worryin = Not at all Worrying too much about different things: 1 = Several days Trouble relaxin = Several days Being so restless that it is hard to sit still: 1 = Several days Becoming easily annoyed or irritable: 1 = Several days Feeling afraid as if something awful might happen: 0 = Not at all Total DEEPALI-7 score (0-4 normal; 5-9 mild; 10-14 moderate; 15-21 severe): 5 Source: Developed by Drs. Mao Florentino, Cris Simon, Ned Jaramillo and colleagues, with an educational hayde from [employer]. DEEPALI-7 Assessment Billing DEEPALI-7 Assessment Tool: DEEPALI-7 Assessment 45749 Review of Systems Const Denies chills, Denies fever(s) and Denies headache(s) Eyes Denies blurry vision ENT Denies headache(s), Denies nasal discharge, Denies nasal obstruction, Denies odynophagia and Denies sinus pain Card Denies chest pain at rest and Denies chest pain with activity Resp Denies cough and Denies hemoptysis GI Denies diarrhea, Denies odynophagia, Denies vomiting and Denies hematemesis Reports as per HPI Musc Denies abnormal gait Skin/Breast Reports as per HPI Neuro Denies Neuro-related abnormal movements, Denies Abnormal speech present, Denies abnormal gait, Denies headache(s) and Denies Sensory deficit (Neuro) Psych Denies mood swings and Denies paranoia Endo Reports as per HPI Kane/Lymph Reports as per HPI Aller/Immun Reports as per HPI Physical exam (Primary Care) Vital Signs: Last Vital Signs Pulse 74 08/12/23 15:37 BP 120/80 08/12/23 15:37 Pulse Ox 98 08/12/23 15:37 Oxygen Delivery Method Room Air 08/12/23 15:37 BMI result Body Mass Index 24.6 Tobacco/Smoking Status: Tobacco use Status Tobacco use date assessed 08/12/23 08/12/23 15:41 Patient Tobacco Use Status Current everyday Tobacco 08/12/23 15:41 Tobacco use type Cigarette 08/12/23 15:41 e-Cigarette/Vaping Use Never Used 08/12/23 15:41 PHQ-9: PHQ-9 Score PHQ-9: Total score 1 08/12/23 15:47 Depression Screening Interpretation: Negative Thrive Assessment: Date of Thrive Assessment Date Thrive assessed 08/12/23 08/12/23 15:47 Currently or been in a relationship where the following occur: no concerns reported Const General: cooperative, comfortable and no acute distress Orientation/consciousness: patient oriented x3 HENMT Head: Yes normocephalic and Yes atraumatic Eyes General: appearance normal, both eyes and all related structures Pupils: Equal, round and reactive pupils present EOM: EOMs intact bilaterally Neck Neck: Yes supple and No lymphadenopathy Thyroid: Thyroid normal Lymphatic: no lymphadenopathy noted Resp Effort & Inspection: normal respiratory effort and able to speak in complete sentences Auscultation: clear to auscultation bilaterally Cardio Heart sounds: S1 normal heart sound present and S2 normal heart sound present GI Palpation (GI): Soft to palpation and nontender Auscultation: normal bowel sounds General: Yes no CVA tenderness Back/Spine/Pelvis Back: no CVA tenderness Skin General skin exam: elasticity normal and turgor normal Neuro General: patient oriented x3 and gait normal Cranial nerves: Yes Equal, round and reactive pupils present Speech: No Abnormal speech present Sensory Exam: No Sensory deficit (Neuro) Coordination: tandem gait normal and Romberg test negative Extrem General: Yes normal exam except as noted and No edema Assessment and Plan Assessment & Plan (1) Encounter for general adult medical examination without abnormal findings: Code(s): Z00.00 - Encounter for general adult medical examination without abnormal findings (2) Lipid disorder: Code(s): E78.9 - Disorder of lipoprotein metabolism, unspecified (3) Impaired fasting blood sugar: Code(s): R73.01 - Impaired fasting glucose (4) Tobacco dependence: Code(s): F17.200 - Nicotine dependence, unspecified, uncomplicated Plan 57-year-old female came in today for physical examination and for acute problem Patient have history of anxiety, tobacco dependence, lipid disorder, impaired fasting sugar. Patient was evaluated in emergency room 7th of this month for acute left wrist pain X-ray of wrist reveal no evidence of osseous injury, no carpal bone fracture or malalignment. [id number]-[id number] osteoarthritis of 1st carpometacarpal joint was noticed. Dr. Dixon orthopedic evaluated the patient tried to do a joint aspiration with little fluid retrieved. Orthopedic did not think that this is a septic arthritis. And recommended NSAIDs. She was placed in splint and was discharged She was given a script of Tylenol and ketorolac 10 mg tablets t.i.d. p.r.n. 15 tablets Mammogram was November of last year OBGYN visit , patient was going to [facility] every 2 years, however she has a history of hysterectomy and has no cervix either due to benign reasons. Colonoscopy was 2 years ago at [facility] Patient has stopped taking anxiety medication Her wrist pain is improving gradually Only medication she is taking now is rosuvastatin, patient will return in 6 months for follow-up appointment Labs to be done before visit fasting She also goes to [facility] once a year for skin cancer screening Orders: Orders Comprehensive [place]. Panel Fast 6 Months E78.9 - Disorder of lipoprotein metabolism, unspecified, F17.200 - Nicotine dependence, unspecified, uncomplicated, R73.01 - Impaired fasting glucose Lipid Panel 6 Months E78.9 - Disorder of lipoprotein metabolism, unspecified, F17.200 - Nicotine dependence, unspecified, uncomplicated, R73.01 - Impaired fasting glucose Complete Blood Count Auto Diff 6 Months E78.9 - Disorder of lipoprotein metabolism, unspecified, F17.200 - Nicotine dependence, unspecified, uncomplicated, R73.01 - Impaired fasting glucose Hemoglobin A1c 6 Months R73.01 - Impaired fasting glucose Coding Level of Care Code Est Pt Prev Care 40-64y(05541) Diagnoses Encounter for general adult medical examination without abnormal findings Z00.00 Lipid disorder E78.9 Impaired fasting blood sugar R73.01 Tobacco dependence F17.200 Additional Codes DEEPALI-7 Assessment Billing - DEEPALI-7 Assessment Tool: DEEPALI-7 Assessment 94160 ([id number])
[2023-08-12 15:37] VITALS: BP 120/80; PULSE 74; O2SAT 98; BMI 24.6
== END 2023-08-12 16:00 | disposition home or self-care (01) ==
PROVIDERS: PCP Internal Medicine; Visit Provider Internal Medicine
DX: Z00.00 Encounter for general adult medical examination without abnormal findings (principal); E78.9 Disorder of lipoprotein metabolism, unspecified; R73.01 Impaired fasting glucose; F17.210 Nicotine dependence, cigarettes, uncomplicated
CPT/HCPCS: 99396

== ENCOUNTER 2023-12-02 15:00 | Outpatient (REF) | payer OTHER, SELFPAY ==
--- NOTE | ~2023-12-02 | MM_ITS ---
EXAMINATION: MM DIAGNOSTIC DIGITAL BREAST TOMOSYNTHESIS, BILATERAL CLINICAL INFORMATION: One-year diagnostic magnification views/follow-up for 3 groups of probably benign faint calcifications in the upper outer right breast (likely stable from 2016, although no prior magnification views were available previously for direct comparison). Patient also due for yearly. COMPARISON: Mammography: 11/26/2022, 11/22/2022, 11/16/2021, 03/22/2020, and dating back to 2016. TECHNIQUE: Digital breast tomosynthesis is performed in both the craniocaudal and mediolateral oblique views along with computer-aided detection (CAD). Synthesized 2D images are generated from the tomosynthesis. In addition, 2-D spot magnification views were obtained of the right breast in the CC, and ML x2 projections. FINDINGS: The breasts are heterogeneously dense, which may obscure small masses (ACR BI-RADS breast composition Category c). These 3 groups of extremely faint, punctate calcifications are entirely unchanged in morphology and number from one year prior, and in retrospect likely unchanged from exams dating back to 2016. No aggressive changes. These are benign, and no further follow-up recommended. Otherwise, there are scattered small calcified benign oil cysts in both breasts. There are no suspicious masses, new suspicious grouped calcifications, or areas of architectural distortion in either breast. The parenchymal pattern is stable from prior exams. There is no skin or axillary abnormality. MM/MM tomosynthesis diagnostic BI IMPRESSION: There are no findings in either breast suspicious for malignancy. Calcifications in the upper outer right breast are stable over numerous years and benign. No further follow-up recommended. Recommend the patient resume routine annual screening mammography. ASSESSMENT: BI-RADS BI-RADS 2 - Benign Findings RECOMMENDATION: 1 year F/U Results were provided to the patient at time of visit by the technologist. This patient's information was entered into a reminder system with a target due date for their next mammogram. Electronically signed by: Efra Amaya MD 12/02/2023 04:23 PM EDT
== END 2023-12-02 15:01 | disposition home or self-care (01) ==
LOC: HO.MAMMO 15:00
PROVIDERS: PCP Internal Medicine; Visit Provider Internal Medicine
DX: R92.1 Mammographic calcification found on diagnostic imaging of breast (principal)
CPT/HCPCS: 77062; 77066

== ENCOUNTER → 2023-12-02 15:00 | Outpatient (BNV) | payer OTHER, SELFPAY | PROVIDERS: PCP Internal Medicine; Visit Provider Radiology Diagnostic Radiology | DX: R92.1 Mammographic calcification found on diagnostic imaging of breast (principal) | CPT/HCPCS: 77062; 77066 ==

== ENCOUNTER 2024-01-06 16:12 | Outpatient (REF) | payer OTHER, SELFPAY | END 2024-01-06 16:13 | disposition home or self-care (01) | LOC: HO.CT 16:12 | PROVIDERS: PCP Internal Medicine; Visit Provider Physician Assistant Medical | DX: Z12.2 Encounter for screening for malignant neoplasm of respiratory organs (principal); F17.210 Nicotine dependence, cigarettes, uncomplicated | CPT/HCPCS: 71271 ==

== ENCOUNTER 2024-01-23 08:23 | Outpatient (REF) | payer OTHER, SELFPAY ==
[2024-01-23 11:13] LABS: MANUAL DIFF FLAG NO
[2024-01-23 11:20] LABS: Basophils Absolute Auto 0.1 X10*3/uL (0.0-0.2); Basophils Percent Auto 0.7 % (0-2); Eosinophils Absolute Auto 0.1 X10*3/uL (0.0-0.4); Eosinophils Percent Auto 1.4 % (0-4); Hematocrit 40.5 % (37.0-47.0); Hemoglobin 13.4 g/dl (12.0-16.0); Imm Gran Abs Auto 0.03 X10*3/uL (0.00-0.03); Imm Gran Pct Auto 0.4 % (0.0-0.4); Lymphocytes Absolute Auto 2.3 X10*3/uL (1.2-4.9); Mean Corpuscular HGB Conc 33.1 g/dl (31.0-35.0); Mean Corpuscular Hemoglobin 31.9 pg (27.0-33.0); Mean Corpuscular Volume 96.4 fL (80.0-98.0); Mean Platelet Volume 9.3 fL (9.4-12.3); Monocytes Percent Auto 12.2 % (2-11); Neutrophils Absolute Auto 4.9 x10*3/uL (2.0-8.3); Neutrophils Percent Auto 58.3 % (45-73); Platelet Count 318 X10*3/uL (160-400); Red Cell Distribution Width 15.1 % (11.0-16.0); White Blood Count 8.5 X10*3/uL (4.8-10.8)
[2024-01-23 11:24] LABS: Estimated Average Glucose 117 mg/dL; Hemoglobin A1c % 5.7 % (<6.0); Total Hemoglobin (HGBA1C) 3499.7105 umol/L
[2024-01-23 11:34] LABS: Alanine Aminotransferase 19 U/L (0-31); Albumin Level 4.1 g/dL (3.5-5.0); Alkaline Phosphatase 60 U/L (39-117); Anion Gap 11 (12-20); Aspartate Amino Transferase 30 U/L (5-31); Bilirubin Total 0.2 mg/dL (0.0-1.0); Blood Urea Nitrogen 11 mg/dL (9-16); Calcium 8.8 mg/dL (8.4-10.2); Carbon Dioxide 25 mmol/L (22-29); Chloride 111 mmol/L (96-108); Cholesterol 143 mg/dL (<200); Estimated Glomerular Filt Rate > 60; Glucose Fasting 112 mg/dL (60-99); HDL Cholesterol 53 mg/dL (>40); LDL Cholesterol Calculated 79 mg/dL (<100); Potassium 4.7 mmol/L (3.3-5.1); Sodium 142 mmol/L (135-145); Total Protein 6.8 g/dL (6.5-8.0); Triglycerides 59 mg/dL (<150)
[2024-01-23 11:37] LABS: Alanine Aminotransferase 19 U/L (0-31); Albumin Level 4.1 g/dL (3.5-5.0); Alkaline Phosphatase 61 U/L (39-117); Aspartate Amino Transferase 30 U/L (5-31); Bilirubin Direct < 0.2 mg/dL (0.0-0.5); Bilirubin Total 0.2 mg/dL (0.0-1.0); Total Protein 6.7 g/dL (6.5-8.0)
== END 2024-01-23 08:24 | disposition home or self-care (01) ==
LOC: HO.HMGCLDS 08:23
PROVIDERS: Physician Assistant Medical; PCP Internal Medicine; Visit Provider Internal Medicine
DX: Z79.899 Other long term (current) drug therapy (principal); F17.200 Nicotine dependence, unspecified, uncomplicated; R73.01 Impaired fasting glucose; E78.9 Disorder of lipoprotein metabolism, unspecified
CPT/HCPCS: 36415; 80053; 80061; 80076; 82248; 83036; 85025

== ENCOUNTER 2024-01-29 15:16 | Outpatient (AMB) | payer OTHER, SELFPAY ==
--- NOTE | 2024-01-29 15:25 | A.OFFPC_ITS ---
Vital Signs 01/29/24 15:26 Height 5 ft 3 in Weight 139 lb BMI 24.6 BP 134/68 Blood Pressure Location Rt brachial Position Sitting Pulse 59 Pulse Source Pulse Oximeter Pulse Oximetry (%) 94 Oxygen Delivery Method Room Air Intake Visit Reasons: 6M F/U Allergies Statins Adverse Reaction (Unknown, Uncoded 01/29/24 15:29) Joint pain Medication List - Last Reconciled 01/29/24 by Eric Mcmahan MD acetaminophen (Tylenol) 650 mg (2 x 325 mg) PO Q4H PRN multivitamin 1 tab PO DAILY rosuvastatin 20 mg PO DAILY 90 days Tobacco use date assessed: 01/29/24 Dental Screening Dental Screen Date: 01/29/24 Did you have a dental visit in the last 12 months?: Yes Did you have a dental problem in the last 6 months where you did not have access to dental care?: No Was dental information given to patient?: Patient has dentist HPI 6M F/U HPI Details Assessment and Plan 58 year old female with history of hyper lipidemia presenting with respiratory symptoms including cough and sinus issues. The patient reported initial symptoms of sinus pressure and rhinorrhea that progressed to involve chest congestion, suggestive of acute respiratory infection with cough. Currently, the patient experiences phlegm production which is clear in nature, indicating a non- bacterial etiology. She reports mild improvement in symptoms. Subclinical elevations in fasting glucose levels suggest progression towards diabetes mellitus, warranting continued monitoring. Hyperlipidemia is well-managed with rosuvastatin therapy. The patient is undergoing treatment for onychomycosis, with ongoing management through dermatology. 1. Hyperlipidemia The patient remains on rosuvastatin 20 mg daily, with no reported adverse effects. Lipid profile demonstrates effective management with current therapy. No changes to medication regimen needed at this time. 2. Onychomycosis The patient is on an antifungal regimen prescribed by her instrument maker and repairer for toenail fungus, to be taken once per day for the duration of three months with follow-up as directed by dermatology for potential blood work after six weeks. 3. Prediabetes Fasting glucose levels have shown a gradual increase over the past year, cu rrently at 112 mg/dL. Patient education provided on lifestyle modifications to manage glucose levels, such as dietary adjustments and regular exercise, to prevent progression to diabetes mellitus. 4. Acute Respiratory Infection With Coug h The patient is advised to continue symptomatic treatment with increased fluid intake and use of an expectorant and cough suppressant. No indications of bacterial infection; phlegm is clear. Patient will monitor symptoms at home and seek further consultation if condition does not improve or worsens. Diagnostic results - Labs: All recent lab work reported as satisfactory, including kidney function, liver enzymes, and lipid profile. - Tests and Diagnostics: Awaiting result s from January 05 thoracic imaging. Problem List - Acute Respiratory Infection with Cough - Hyperlipidemia - Onychomycosis - Prediabetes [place] [facility] Patient counseled to contact thoracic surgery to encounter about recent chest imaging Patient Instructions - Continue current [id number] medi cation for cough management and increase fluid intake. - Maintain regular medication regimen fo r hyperlipidemia without changes. - Adhere to dermatological treatment deny n for onychomycosis and follow-up as scheduled. - Monitor fasting glucose levels and eng age in lifestyle changes to manage prediabetes risk. - Report any persistent or worsening sym ptoms for further evaluation. Patient has appointment in August for physical exam, order placed for labs to be done fasting before visit [facility] Medical History History of basal cell cancer Vitamin D insufficiency (~2021) History of colon polyps (~2018) Nicotine dependence, cigarettes, uncomplicated B12 deficiency (~2021) Lipid disorder Surgical History History of basal cell carcinoma (BCC) excision History of hysterectomy History of cervical biopsy History of colonoscopy Family History Brother Substance use disorder Social History Housing: House Patient Tobacco Use Status: Current everyday Tobacco user Tobacco use type: Cigarette Cigarettes Per Day: 15 Years Smoked: (onset 18yo, 1ppd x 38yrs, now 3/4ppd - 35pyh) e-Cigarette/Vaping Use: Never Used service: No Current occupational status: employed Cognitive needs: No Hearing needs: No Vision needs: Yes Questionnaire Thrive Questionnaire Date Thrive assessed: 08/12/23 I am a: Patient What is your living situation today?: I have a steady place to live Within the past 12 months, did the food you bought not last and you didn't have the money to get more?: Never true Within the past 12 months, did you worry whether your food would run out before you got money to buy more?: Never true Do you have trouble paying for medicines?: No Do you have trouble getting transportation to medical appointments?: No Do you have trouble paying your heating and electricity bill?: No Do you have trouble taking care of your child, family member or friend?: No Do you have trouble with day-to-day activities such as bathing, preparing meals, shopping, managing finances, etc.?: No Are you currently unemployed and looking for a job?: No Are you interested in more education?: No Please select the resources that you would like help with: None Currently or been in a relationship where the following occur: No concerns reported THRIVE Score: 0 AUDIT C Alcohol Use Questionnaire (AUDIT-C) 1. How often do you have a drink containing alcohol?: 2-4 times a month 2. How many drinks containing alcohol do you have on a typical day when you are drinking?: 1 or 2 3. How often do you have six or more drinks on one occasion?: Never Total Score: 2 DEEPALI-7 AMB Questionnaire DEEPALI-7 Date DEEPALI - 7 assessed: 08/12/23 Feeling nervous, anxious, or on edge: 0 = Not at all Not being able to stop or control worryin = Not at all Worrying too much about different things: 0 = Not at all Trouble relaxin = Not at all Being so restless that it is hard to sit still: 0 = Not at all Becoming easily annoyed or irritable: 0 = Not at all Feeling afraid as if something awful might happen: 0 = Not at all Total DEEPALI-7 score (0-4 normal; 5-9 mild; 10-14 moderate; 15-21 severe): 0 Source: Developed by Drs. Mao Florentino, Cris Simon, Ned Jaramillo and colleagues, with an educational hayde from [employer]. Review of Systems Const Denies chills and Denies fever(s) ENT Denies epistaxis and Denies nasal discharge Card Denies chest pain Resp Denies hemoptysis GI Denies diarrhea and Denies nausea Skin/Breast Denies rash Neuro Reports no additional complaints Psych Reports no additional complaints Endo Reports no additional complaints Physical exam (Primary Care) Vital Signs: Last Vital Signs Pulse 59 12/06/24 15:26 BP 134/68 01/29/24 15:26 Pulse Ox 94 01/29/24 15:26 Oxygen Delivery Method Room Air 01/29/24 15:26 BMI result Body Mass Index 24.6 Tobacco/Smoking Status: Tobacco use Status Tobacco use date assessed 01/29/24 01/29/24 15:31 Patient Tobacco Use Status Current everyday Tobacco 01/29/24 15:31 Tobacco use type Cigarette 01/29/24 15:31 e-Cigarette/Vaping Use Never Used 01/29/24 15:31 Thrive Assessment: Date of Thrive Assessment Date Thrive assessed 08/12/23 01/29/24 15:31 Currently or been in a relationship where the following occur: No concerns reported Const General: cooperative, comfortable and no acute distress Orientation/consciousness: patient oriented x3 HENMT Head: Yes normocephalic Eyes General: appearance normal, both eyes and all related structures Neck Neck: Yes supple Resp Effort & Inspection: normal respiratory effort, no cough and no stridor Cardio Rhythm: regular rhythm Heart sounds: S1 normal heart sound present and S2 normal heart sound present Skin General skin exam: turgor normal Neuro General: patient oriented x3, tone normal and moves all extremities Extrem Right lower extremity: no edema Left lower extremity: no edema Coding Level of Care Code Est Pt Level 3 (67714) Diagnoses Lipid disorder E78.9 Impaired fasting blood sugar R73.01 Onychomycosis B35.1 B12 deficiency E53.8 Vitamin D insufficiency E55.9 Assessment & Plan Assessment & Plan (1) Lipid disorder: Code(s): E78.9 - Disorder of lipoprotein metabolism, unspecified Category: Medical (2) Impaired fasting blood sugar: Code(s): R73.01 - Impaired fasting glucose Category: Medical (3) Onychomycosis: Code(s): B35.1 - Tinea unguium Category: Medical (4) B12 deficiency: Onset Date: ~2021 Code(s): E53.8 - Deficiency of other specified B group vitamins Category: Medical (5) Vitamin D insufficiency: Onset Date: ~2021 Code(s): E55.9 - Vitamin D deficiency, unspecified Category: Medical Plan Assessment and Plan 58 year old female with history of hyperlipidemia presenting with respiratory symptoms including cough and sinus issues. The patient reported initial symptoms of sinus pressure and rhinorrhea that progressed to involve chest congestion, suggestive of acute respiratory infection with cough. Currently, the patient experiences phlegm production which is clear in nature, indicating a non- bacterial etiology. She reports mild improvement in symptoms. Subclinical elevations in fasting glucose levels suggest progression towards diabetes mellitus, warranting continued monitoring. Hyperlipidemia is well-managed with rosuvastatin therapy. The patient is undergoing treatment for onychomycosis, with ongoing management through dermatology. 1. Hyperlipidemia The patient remains on rosuvastatin 20 mg daily, with no reported adverse effects. Lipid profile demonstrates effective management with current therapy. No changes to medication regimen needed at this time. 2. Onychomycosis The patient is on an antifungal regimen prescribed by her instrument maker and repairer for toenail fungus, to be taken once per day for the duration of three months with follow-up as directed by dermatology for potential blood work after six weeks. 3. Prediabetes Fasting glucose levels have shown a gradual increase over the past year, currently at 112 mg/dL. Patient education provided on lifestyle modifications to manage glucose levels, such as dietary adjustments and regular exercise, to prevent progression to diabetes mellitus. 4. Acute Respiratory Infection With Cough The patient is advised to continue symptomatic treatment with increased fluid intake and use of an expectorant and cough suppressant. No indications of bacterial infection; phlegm is clear. Patient will monitor symptoms at home and seek further consultation if condition does not improve or worsens. Diagnostic results - Labs: All recent lab work reported as satisfactory, including kidney function, liver enzymes, and lipid profile. - Tests and Diagnostics: Awaiting results from January 05 thoracic imaging. Problem List - Acute Respiratory Infection with Cough - Hyperlipidemia - Onychomycosis - Prediabetes [place] [facility] Patient counseled to contact thoracic surgery to encounter about recent chest imaging Patient Instructions - Continue current [id number] medication for cough management and increase fluid intake. - Maintain regular medication regimen for hyperlipidemia without changes. - Adhere to dermatological treatment plan for onychomycosis and follow-up as scheduled. - Monitor fasting glucose levels and engage in lifestyle changes to manage prediabetes risk. - Report any persistent or worsening symptoms for further evaluation. Patient has appointment in August for physical exam, order placed for labs to be done fasting before visit Orders: Orders Complete Blood Count Auto Diff Today B35.1 - Tinea unguium, E53.8 - Deficiency of other specified B group vitamins, E55.9 - Vitamin D deficiency, unspecified, E78.9 - Disorder of lipoprotein metabolism, unspecified, R73.01 - Impaired fasting glucose Lipid Panel Today B35.1 - Tinea unguium, E53.8 - Deficiency of other specified B group vitamins, E55.9 - Vitamin D deficiency, unspecified, E78.9 - Disorder of lipoprotein metabolism, unspecified, R73.01 - Impaired fasting glucose Vitamin B12 Today B35.1 - Tinea unguium, E53.8 - Deficiency of other specified B group vitamins, E55.9 - Vitamin D deficiency, unspecified, E78.9 - Disorder of lipoprotein metabolism, unspecified, R73.01 - Impaired fasting glucose Comprehensive [place]. Panel Fast Today B35.1 - Tinea unguium, E53.8 - Deficiency of other specified B group vitamins, E55.9 - Vitamin D deficiency, unspecified, E78.9 - Disorder of lipoprotein metabolism, unspecified, R73.01 - Impaired fasting glucose Vitamin D 25-OH (D2 and D3) Today B35.1 - Tinea unguium, E53.8 - Deficiency of other specified B group vitamins, E55.9 - Vitamin D deficiency, unspecified, E78.9 - Disorder of lipoprotein metabolism, unspecified, R73.01 - Impaired fasting glucose
[2024-01-29 15:26] VITALS: BP 134/68; PULSE 59; O2SAT 94; BMI 24.6
== END 2024-01-29 16:11 | disposition home or self-care (01) ==
PROVIDERS: PCP Internal Medicine; Visit Provider Internal Medicine
DX: E78.9 Disorder of lipoprotein metabolism, unspecified (principal); R73.01 Impaired fasting glucose; B35.1 Tinea unguium; E53.8 Deficiency of other specified B group vitamins; E55.9 Vitamin D deficiency, unspecified

== ENCOUNTER 2024-03-08 08:31 | Outpatient (REF) | payer OTHER, SELFPAY ==
[2024-03-08 10:39] LABS: Alanine Aminotransferase 17 U/L (0-31); Albumin Level 4.2 g/dL (3.5-5.0); Alkaline Phosphatase 59 U/L (39-117); Aspartate Amino Transferase 23 U/L (5-31); Bilirubin Direct 0.1 mg/dL (0.0-0.5); Bilirubin Total 0.3 mg/dL (0.0-1.0); Total Protein 6.9 g/dL (6.5-8.0)
== END 2024-03-08 08:32 | disposition home or self-care (01) ==
LOC: HO.HMGCLR 08:31
PROVIDERS: PCP Internal Medicine; Visit Provider Physician Assistant Medical
DX: Z79.899 Other long term (current) drug therapy (principal)
CPT/HCPCS: 36415; 80076

== ENCOUNTER 2024-08-30 06:33 | Outpatient (REF) | payer OTHER, SELFPAY ==
--- OUTSIDE RECORDS SUMMARY | 2024-08-30 06:34 | XMS_ITS ---
Author Name [facility] Organization Unknown Encounters Encounter Type Encounter Reason Primary Diagnosis Location Date Ambulatory [facility] 09/29/2022 Care Team Organization Name Specialty Phone Email Start Date End Da te [facility] [employer] 03/15/2023 [facility] 09/29/2022 09/29/2022 [facility] 09/29/2022
[2024-08-30 11:03] LABS: MANUAL DIFF FLAG NO
[2024-08-30 11:07] LABS: Hematocrit 40.6 % (37.0-47.0); Hemoglobin 13.8 g/dl (12.0-16.0); Imm Gran Abs Auto 0.03 X10*3/uL (0.00-0.03); Imm Gran Pct Auto 0.3 % (0.0-0.4); Lymphocytes Absolute Auto 4.2 X10*3/uL (1.2-4.9); Mean Corpuscular HGB Conc 34.0 g/dl (31.0-35.0); Mean Corpuscular Hemoglobin 32.3 pg (27.0-33.0); Mean Corpuscular Volume 95.1 fL (80.0-98.0); NRBC Abs Auto 0.000 X10*3/uL (0.0-0.012); NRBC Pct Auto 0.0 /100WBC (0.0-0.2); Platelet Count 329 X10*3/uL (160-400); Red Blood Count 4.27 X10*6/uL (4.20-5.50); White Blood Count 10.0 X10*3/uL (4.8-10.8)
[2024-08-30 11:43] LABS: Alanine Aminotransferase 12 U/L (0-31); Albumin Level 4.3 g/dL (3.5-5.0); Alkaline Phosphatase 53 U/L (39-117); Anion Gap 11 (12-20); Aspartate Amino Transferase 29 U/L (5-31); Blood Urea Nitrogen 13 mg/dL (9-16); Calcium 9.3 mg/dL (8.4-10.2); Carbon Dioxide 26 mmol/L (22-29); Chloride 107 mmol/L (96-108); Cholesterol 153 mg/dL (<200); Estimated Glomerular Filt Rate > 60; HDL Cholesterol 46 mg/dL (>40); Potassium 4.4 mmol/L (3.3-5.1); Sodium 140 mmol/L (135-145); Total Protein 6.6 g/dL (6.5-8.0); Triglycerides 135 mg/dL (<150)
[2024-08-30 12:06] LABS: Vitamin B12 272 pg/mL (200-900)
[2024-09-03 15:34] LABS: Vitamin D 25-OH, D2 <4 ng/mL; Vitamin D 25-OH, D3 20 ng/mL; Vitamin D 25-OH, Total 20 ng/mL (30-100)
== END 2024-08-30 06:34 | disposition home or self-care (01) ==
LOC: HO.HMGCLDS 06:33
PROVIDERS: PCP Internal Medicine; Visit Provider Internal Medicine
DX: E78.9 Disorder of lipoprotein metabolism, unspecified (principal); R73.01 Impaired fasting glucose; E55.9 Vitamin D deficiency, unspecified; E53.8 Deficiency of other specified B group vitamins; B35.1 Tinea unguium
CPT/HCPCS: 36415; 80053; 80061; 82306; 82607; 85025

== ENCOUNTER 2024-09-02 15:17 | Outpatient (AMB) | payer OTHER, SELFPAY ==
--- OUTSIDE RECORDS SUMMARY | 2024-09-02 15:21 | XMS_ITS | Clinical Summary ---
Author Organization [facility] Address [address] [place] [address] Care Team Providers Care Data Modeling Specialist Name Role Phone Eric Mcmahan MD Primary Care Provider [phone] Social History Tobacco Use Types Packs/Day Years Used Date Smoking Tobacco: Never Assessed Comments Unknown Sex and Gender Information Value Date Recorded Sex Assigned at Not on file Legal Sex Female 10:53 AM EDT Gender Identity Not on file Sexual Orientation Not on file Plan of Treatment Health Maintenance Due Date Last Done Comments Hepatitis C Virus Screening 1965 HIV Screening 12/15/1976 DTaP/Tdap/Td Vaccines (1 - Tdap) 12/15/1982 Pap Smear (Ages 21-65) 12/15/1984 Mammogram 2003 Colonoscopy 12/15/2008 Pneumococcal Vaccines 50+ (1 of 1 - PCV) 12/15/2013 Zoster (Shingles) Vaccine (1 of 2) 12/15/2013 COVID-19 Vaccine ( - 2023-2 5 season) 2023 Influenza Vaccine 09/23/2024 RSV Vaccine 60 years and old er and Patients (1 - 1-dose 75+ series) 12/15/2038 Hepatitis B Vaccines Aged Out No long er eligible based on patient's age to complete this topic Insurance [employer] HMO Care Teams Data Modeling Specialist Relationship Specialty Start Date End Date Eric Mcmahan MD [facility] [place] [address] PCP - General Internal Medicine 09/29/22
[2024-09-02 15:23] VITALS: BP 128/84; PULSE 94; RESP 16; O2SAT 96; BMI 25.5
--- NOTE | 2024-09-02 15:23 | A.OFFPC_ITS ---
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 Accompanied by: Self / Same As Patient Allergies Elkmexp-MCK-QbD Reductase Inhibitor Adverse Reaction (Mild, Verified 09/02/24 15:32) Joint Pain Medication List - Last Reconciled 09/02/24 by Eric Mcmahan MD acetaminophen (Tylenol) 650 mg (2 x 325 mg) PO Q4H PRN multivitamin 1 tab PO DAILY rosuvastatin 20 mg PO DAILY 90 days Tobacco use date assessed: 09/02/24 Dental Screening Dental Screen Date: 09/02/24 Did you have a dental visit in the last 12 months?: Yes Did you have a dental problem in the last 6 months where you did not have access to dental care?: No Was dental information given to patient?: Patient has dentist HPI Annual PE HPI Details - The patient is a 58-year-old female pr esenting with the purpose of an annual physical examination. - Impaired Fasting Glucose: Previously n oted impaired fasting glucose levels, indicating prediabetes. Patient reports it is less than last recorded levels. - Vitamin B12 Deficiency: Identified low levels of Vitamin B12. - Tobacco Use: Reports smoking approxima tely 10 cigarettes daily, associated with Chronic Obstructive Pulmonary Disease diagnosis. - Status Post Complete Hysterectomy: Brigida joaquin had a complete hysterectomy in the past due to uterine prolapse after childbirth, retaining ovaries. Medical History: - Chronic Obstructive Pulmonary Disease (COPD) - Prediabetes - Vitamin B12 Deficiency Surgical History: - Complete hysterectomy due to uterine p rolapse repair Social History: - The patient works from home with a [employer] to return to office in October. - Exercise: Currently utilizes a walking pad at home for exercise. - Tobacco use: Smokes approximately 10 c igarettes daily. Health Maintenance - Advised to start Vitamin B12 supplemen ts. - Discussed probable Vitamin D deficienc y and recommended supplementation. - Mammogram due annually, next scheduled for November. - Colonoscopy completed in 2018, next du e in 2028. - Previous pneumococcal vaccine received in 2019; recommended to have the Prevnar 20 due to COPD and smoking history. - Discussed shingles vaccination based o n patient?s age. - Encouraged cessation of smoking due to health risks associated with COPD and smoking. 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 Diagnostic results - Labs: Complete Blood Count (CBC) pato l, no anemia. White blood cell count within normal range. Electrolytes and kidney function tests normal. Liver enzymes normal. Low Vitamin B12 level detected. - Cholesterol: LDL at 80, considered opt imal. Patient Instructions - Begin taking Vitamin B12 supplements a s prescribed. - Consider taking Vitamin D3, 1,000 unit s three times a week. - Continue rosuvastatin as prescribed; o btain refill from [facility]. - Schedule and keep routine follow-ups f or lab tests in six months. - Consider pneumonia and shingles vaccin ations, confirming insurance coverage. - Cease tobacco use for improved respira tory health and COPD management. Review of Systems - General: No fever no chills - Neurological: No headaches no dizzin ess - Ear nose throat: No sore throat no hearing difficulty no ear pain - Cardiovascular: No syncope, no chest pain, no palpitations - Gastrointestinal: No nausea vomiting or diarrhea - Endocrine: No polyuria polydipsia no heat intolerance - Genitourinary: No dysuria - Skin: No new complaints Physical Exam General: Cooperative, healthy appearing, comfortable, no acute distress Orientation: Patient oriented x3 Head: Normal to inspection Ears: Within normal limit visually Nose: Normal external nose present Face and sinus: Normal facial exam Eyes: Appearance normal, extraocular movement intact pupils reactive Neck: Normal visual inspection and supple Respiratory: Normal respiratory effort and able to speak in complete sentences. wheezing noted in the back, no stridor Cardiovascular: S1 and S2 RRR Breast exam declined GI: Normal to inspection. Soft to palpation and nontender Skin: Turgor normal, no acute findings Neuro: Patient oriented x3, motor sensory intact, balance intact, tandem pass Extremities: Normal to inspection [facility] Medical History History of basal cell cancer Vitamin D insufficiency (~2021) History of colon polyps (~2018) Nicotine dependence, cigarettes, uncomplicated B12 deficiency (~2021) Lipid disorder Surgical History History of basal cell carcinoma (BCC) excision History of hysterectomy History of cervical biopsy History of colonoscopy Family History Brother Substance use disorder Social History Housing: House Patient Tobacco Use Status: Current everyday Tobacco user Tobacco use type: Cigarette Cigarettes Per Day: 15 Years Smoked: (onset 18yo, 1ppd x 38yrs, now 3/4ppd - 35pyh) e-Cigarette/Vaping Use: Never Used service: No Current occupational status: employed Cognitive needs: No Hearing needs: No Vision needs: Yes Questionnaire PHQ-9 Over the last 2 weeks, how often have you been bothered by any of the following problems? 1. Little interest or pleasure in doing things: not at all 2. Feeling down, depressed, or hopeless: not at all 3. Trouble falling or staying asleep, or sleeping too much: not at all 4. Feeling tired or having little energy: not at all 5. Poor appetite or overeating: not at all 6. Feeling bad about yourself - or that you are a failure or have let yourself or your family down: not at all 7. Trouble concentrating on things, such as reading the newspaper or watching television: not at all 8. Moving or speaking so slowly that other people could have noticed. Or the opposite - being so fidgety or restless that you have been moving around a lot more than usual: not at all 9. Thoughts that you would be better off or of hurting yourself in some way: not at all Total score: 0 Depression Screening Interpretation: Negative Depression Screening Done: Yes 06854 - PHQ-9 Billing: Yes Source: Developed by Drs. Mao Florentino, Cris Simon, Ned Jaramillo and colleagues, with an educational hayde from [employer]. Thrive Questionnaire Date Thrive assessed: 09/02/24 I am a: Patient What is your living situation today?: I have a steady place to live Within the past 12 months, did the food you bought not last and you didn't have the money to get more?: Never true Within the past 12 months, did you worry whether your food would run out before you got money to buy more?: Never true Do you have trouble paying for medicines?: No Do you have trouble getting transportation to medical appointments?: No Do you have trouble paying your heating and electricity bill?: No Do you have trouble taking care of your child, family member or friend?: No Do you have trouble with day-to-day activities such as bathing, preparing meals, shopping, managing finances, etc.?: No Are you currently unemployed and looking for a job?: No Are you interested in more education?: No Please select the resources that you would like help with: None Currently or been in a relationship where the following occur: I choose not to answer THRIVE Score: 0 AUDIT C Alcohol Use Questionnaire (AUDIT-C) 1. How often do you have a drink containing alcohol?: 2-4 times a month 2. How many drinks containing alcohol do you have on a typical day when you are drinking?: 1 or 2 3. How often do you have six or more drinks on one occasion?: Never Total Score: 2 DEEPALI-7 AMB Questionnaire DEEPALI-7 Date DEEPALI - 7 assessed: 09/02/24 Feeling nervous, anxious, or on edge: 0 = Not at all Not being able to stop or control worryin = Not at all Worrying too much about different things: 0 = Not at all Trouble relaxin = Not at all Being so restless that it is hard to sit still: 0 = Not at all Becoming easily annoyed or irritable: 1 = Several days Feeling afraid as if something awful might happen: 0 = Not at all Total DEEPALI-7 score (0-4 normal; 5-9 mild; 10-14 moderate; 15-21 severe): 1 Source: Developed by Drs. Mao Florentino, Cris Simon, Ned Jaramillo and colleagues, with an educational hayde from [employer]. DEEPALI-7 Assessment Billing DEEPALI-7 Assessment Tool: DEEPALI-7 Assessment 18998 Physical exam (Primary Care) Vital Signs: Last Vital Signs Pulse 94 09/02/24 15:23 Resp 16 09/02/24 15:23 BP 128/84 09/02/24 15:23 Pulse Ox 96 09/02/24 15:23 Oxygen Delivery Method Room Air 09/02/24 15:23 BMI result Body Mass Index 25.5 Tobacco/Smoking Status: Tobacco use Status Tobacco use date assessed 09/02/24 09/02/24 15:32 Patient Tobacco Use Status Current everyday Tobacco 09/02/24 15:25 Tobacco use type Cigarette 09/02/24 15:25 e-Cigarette/Vaping Use Never Used 09/02/24 15:25 PHQ-9: PHQ-9 Score PHQ-9: Total score 0 09/02/24 15:51 Depression Screening Interpretation: Negative Thrive Assessment: Date of Thrive Assessment Date Thrive assessed 09/02/24 09/02/24 15:25 Currently or been in a relationship where the following occur: I choose not to answer Immunizations pneumoc 20-goran conj-dip cr(PF) 0.5 mL IM syringe Performing Provider: Eric Mcmahan MD Performing Location: [facility] Administered by: Harshad Goldstein CMA on 09/02/24 15:48 Dose Route Admin Location Dispensed Lot Number Expiration Date [place] [employer] Claims Examiner 0.5 mL IM Left Deltoid 0.5 mL [id number] 08/12/25 [employer] Total Dispensed Waste 0.5 mL 0 % VIS Given Date VIS Provided VIS Publication Date 09/02/24 Single Vaccine 24 Eligibility Eligibility Date Funding Source Not [facility] Eligible 09/02/24 Private Coding Level of Care Code Est Pt Level 3 (63198) Est Pt Prev Care 40-64y(46588) Diagnoses Encounter for general adult medical examination with abnormal findings Z00.01 Chronic obstructive pulmonary disease, unspecified COPD type J44.9 COPD type: unspecified COPD Wheezing R06.2 Tobacco dependence F17.200 B12 deficiency E53.8 Impaired fasting blood sugar R73.01 Lipid disorder E78.9 Immunizations incomplete Z28.39 Additional Codes DEEPALI-7 Assessment Billing - DEEPALI-7 Assessment Tool: DEEPALI-7 Assessment 78122 ([id number]) PHQ-9 - 89919 - PHQ-9 Billing: Yes ([id number]) Assessment & Plan Assessment & Plan (1) Encounter for general adult medical examination with abnormal findings: Code(s): Z00.01 - Encounter for general adult medical examination with abnormal findings Category: Medical (2) COPD (chronic obstructive pulmonary disease): Code(s): J44.9 - Chronic obstructive pulmonary disease, unspecified Category: Medical Qualifiers: COPD type: unspecified COPD Qualified Code(s): J44.9 - Chronic obstructive pulmonary disease, unspecified (3) Wheezing: Code(s): R06.2 - Wheezing Category: Medical (4) Tobacco dependence: Code(s): F17.200 - Nicotine dependence, unspecified, uncomplicated Category: Medical (5) B12 deficiency: Onset Date: ~2021 Code(s): E53.8 - Deficiency of other specified B group vitamins Category: Medical (6) Impaired fasting blood sugar: Code(s): R73.01 - Impaired fasting glucose Category: Medical (7) Lipid disorder: Code(s): E78.9 - Disorder of lipoprotein metabolism, unspecified Category: Medical (8) Immunizations incomplete: Code(s): Z28.39 - Other underimmunization status Category: Medical Plan - The patient is a 58-year-old female presenting with the purpose of an annual physical examination. - Impaired Fasting Glucose: Previously noted impaired fasting glucose levels, indicating prediabetes. Patient reports it is less than last recorded levels. - Vitamin B12 Deficiency: Identified low levels of Vitamin B12. - Tobacco Use: Reports smoking approximately 10 cigarettes daily, associated with Chronic Obstructive Pulmonary Disease diagnosis. - Status Post Complete Hysterectomy: Patient had a complete hysterectomy in the past due to uterine prolapse after childbirth, retaining ovaries. Medical History: - Chronic Obstructive Pulmonary Disease (COPD) - Prediabetes - Vitamin B12 Deficiency Surgical History: - Complete hysterectomy due to uterine prolapse repair Social History: - The patient works from home with a plan to return to office in October. - Exercise: Currently utilizes a walking pad at home for exercise. - Tobacco use: Smokes approximately 10 cigarettes daily. Health Maintenance - Advised to start Vitamin B12 supplements. - Discussed probable Vitamin D deficiency and recommended supplementation. - Mammogram due annually, next scheduled for November. - Colonoscopy completed in 2018, next due in 2028. - Previous pneumococcal vaccine received in 2019; recommended to have the Prev pk 20 due to COPD and smoking history. - Discussed shingles vaccination based on patient?s age. - Encouraged cessation of smoking due to health risks associated with COPD and smoking. 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 Diagnostic results - Labs: Complete Blood Count (CBC) normal, no anemia. White blood cell count within normal range. Electrolytes and kidney function tests normal. Liver enzymes normal. Low Vitamin B12 level detected. - Cholesterol: LDL at 80, considered optimal. Patient Instructions - Begin taking Vitamin B12 supplements as prescribed. - Consider taking Vitamin D3, 1,000 units three times a week. - Continue rosuvastatin as prescribed; obtain refill from [facility]. - Schedule and keep routine follow-ups for lab tests in six months. - Consider pneumonia and shingles vaccinations, confirming insurance coverage. - Cease tobacco use for improved respiratory health and COPD management. Orders: Orders Lipid Panel 6 Months E53.8 - Deficiency of other specified B group vitamins, E78.9 - Disorder of lipoprotein metabolism, unspecified, F17.200 - Nicotine dependence, unspecified, uncomplicated, R73.01 - Impaired fasting glucose, Z00.01 - Encounter for general adult medical examination with abnormal findings, Z28.39 - Other underimmunization status Pneumococcal 20 Immunization Today Z23 - Encounter for immunization Comprehensive [place]. Panel Fast 6 Months E53.8 - Deficiency of other specified B group vitamins, E78.9 - Disorder of lipoprotein metabolism, unspecified, F17.200 - Nicotine dependence, unspecified, uncomplicated, R73.01 - Impaired fasting glucose, Z00.01 - Encounter for general adult medical examination with abnormal findings, Z28.39 - Other underimmunization status Vitamin B12 6 Months E53.8 - Deficiency of other specified B group vitamins, E78.9 - Disorder of lipoprotein metabolism, unspecified, F17.200 - Nicotine dependence, unspecified, uncomplicated, R73.01 - Impaired fasting glucose, Z00.01 - Encounter for general adult medical examination with abnormal findings, Z28.39 - Other underimmunization status Hemoglobin A1c 6 Months E53.8 - Deficiency of other specified B group vitamins, E78.9 - Disorder of lipoprotein metabolism, unspecified, F17.200 - Nicotine dependence, unspecified, uncomplicated, R73.01 - Impaired fasting glucose, Z00.01 - Encounter for general adult medical examination with abnormal findings, Z28.39 - Other underimmunization status Medications: New cholecalciferol (vitamin D3) 25 mcg PO DAILY 90 caps 1RF 90 days cyanocobalamin (vitamin B-12) 1,000 mcg PO DAILY 90 tabs 0RF 90 days Refilled rosuvastatin 20 mg PO DAILY 90 days 90 tabs 1RF rosuvastatin 20 mg PO DAILY 90 tabs 3RF 90 days
== END 2024-09-02 15:54 | disposition home or self-care (01) ==
LOC: HO.HMCC 15:18
PROVIDERS: PCP Internal Medicine; Visit Provider Internal Medicine
DX: Z00.01 Encounter for general adult medical examination with abnormal findings (principal); J44.9 Chronic obstructive pulmonary disease, unspecified; R06.2 Wheezing; F17.200 Nicotine dependence, unspecified, uncomplicated; E53.8 Deficiency of other specified B group vitamins; R73.01 Impaired fasting glucose; E78.9 Disorder of lipoprotein metabolism, unspecified; Z28.39 Other underimmunization status; Z23 Encounter for immunization

== ENCOUNTER → 2024-09-02 15:17 | Outpatient (BNVA) | payer OTHER, SELFPAY | PROVIDERS: PCP Internal Medicine; Visit Provider Internal Medicine | DX: Z00.01 Encounter for general adult medical examination with abnormal findings (principal); J44.9 Chronic obstructive pulmonary disease, unspecified; R73.01 Impaired fasting glucose; E53.8 Deficiency of other specified B group vitamins; R06.02 Shortness of breath; F17.210 Nicotine dependence, cigarettes, uncomplicated; E78.9 Disorder of lipoprotein metabolism, unspecified; Z23 Encounter for immunization | CPT/HCPCS: 90471; 90677; 96127 ==

== ENCOUNTER 2024-12-03 09:50 | Outpatient (REF) | payer OTHER, SELFPAY ==
--- OUTSIDE RECORDS SUMMARY | 2024-12-03 09:54 | XMS_ITS | Clinical Summary ---
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 Role Phone Eric Mcmahan MD Primary Care Provider [phone] Social History Tobacco Use Types Packs/Day Years [...] Zoster (Shingles) Vaccine (1 of 2) 12/15/2013 Influenza Vaccine 09/23/2024 COVID-19 Vaccine (1 - 2023-2 5 season) 2024 RSV Vaccine 60 years and old er and Patients (1 - 1-dose 75+ series) 12/15/2038 Hepatitis B Vaccines Aged Out No long er eligible based on patient's age to complete this topic Insurance [employer] HMO Care Teams Racking Machine Operator Relationship Specialty Start Date End Date Eric Mcmahan MD [facility] [place] [address] PCP - General Internal Medicine 09/29/22
== END 2024-12-03 09:51 | disposition home or self-care (01) ==
LOC: HO.MAMMO 09:50
PROVIDERS: PCP Internal Medicine; Visit Provider Internal Medicine
DX: Z12.31 Encounter for screening mammogram for malignant neoplasm of breast (principal)
CPT/HCPCS: 77063; 77067

== ENCOUNTER → 2024-12-03 10:00 | Outpatient (BNV) | payer OTHER, SELFPAY | PROVIDERS: PCP Internal Medicine; Visit Provider Radiology Body Imaging | DX: Z12.31 Encounter for screening mammogram for malignant neoplasm of breast (principal) | CPT/HCPCS: 77063; 77067 ==